=== PATIENT | female | born 1990 | race Caucasian/White ===

== ENCOUNTER 2019-06-09 23:47 | Emergency (ER) | payer SELFPAY ==
[2019-06-10] MEDS ORDERED: diphenhydrAMINE 50 MG Cap PO ONE (00:24)
--- NOTE | 2019-06-10 00:28 | EDM.PDOC ---
ED HPI GENERAL MEDICAL PROBLEM - General Chief Complaint: Skin Complaint Stated Complaint: ALLERGIC REACTION Time Seen by Provider: 06/10/19 00:20 - History of Present Illness INITIAL COMMENTS - FREE TEXT/NARRATIVE: HISTORY AND PHYSICAL: History of present illness: The patient is a 28 y/o female who is healthy and presents with complaints of a burning itchy rash that started on her back of the neck and then spread to her anterior neck and chest wall and upper extremities as well as her inner thighs but spared other parts of her body. She's not sure what triggered this but she is not having any nausea vomiting chest pain or shortness of breath and no swelling of her mouth or tongue. She says she has no allergies to medications foods or products and she is not sure what she may have contacted. She has not noticed any rash on her back or abdomen nor on the remainder of her lower extremities Review of systems: As per history of present illness and below otherwise all systems reviewed and negative. Past medical history: As per history of present illness and as reviewed below otherwise noncontributory. Surgical history: As per history of present illness and as reviewed below otherwise noncontributory. Social history: No reported history of drug or alcohol abuse. Family history: As per history of present illness and as reviewed below otherwise noncontributory. Physical exam: General: Well-developed well-nourished overweight female who is nontoxic and speaks clearly without breathlessness or hoarse voice HEENT: Atraumatic, normocephalic, pupils reactive, negative for conjunctival pallor or scleral icterus, mucous membranes moist, throat clear, neck supple, nontender, trachea midline. Lungs: Clear to auscultation, breath sounds equal bilaterally, chest nontender. No wheezing or stridor Heart: S1S2, regular, negative for clicks, rubs, or JVD. Abdomen: Soft, nondistended, nontender. Negative for masses or hepatosplenomegaly. Negative for costovertebral tenderness. Pelvis: Deferred Genitourinary: Deferred. Rectal: Deferred. Extremities: Atraumatic, negative for cords or calf pain. Neurovascular unremarkable. Neuro: Awake, alert, oriented. Cranial nerves II through XII unremarkable. Cerebellum unremarkable. Motor and sensory unremarkable throughout. Exam nonfocal. Skin: There is urticaria seen on her upper extremities bilaterally as well as her anterior upper chest and neck but there are no rashes or urticaria seen on her back her abdomen or her distant lower extremities. There is no oropharyngeal swelling or lesions and there is only some slight puffiness to her eyelids bilaterally but no urticaria on her face Diagnostics: [] Therapeutics: Benadryl Impression: Contact allergic reaction Definitive disposition and diagnosis as appropriate pending reevaluation and review of above. - Related Data Allergies Allergy/AdvReac Type Severity Reaction Status Date / Time No Known Allergies Allergy Verified 06/10/19 00:11 Home Meds: Home Meds . [No Known Home Meds] 06/10/19 [History] Past Medical History - Past Health History Medical/Surgical History: Denies Medical/Surgical History Social & Family History - Family History Family Medical History: Noncontributory - Tobacco Use Smoking Status *Q: Never Smoker - Caffeine Use Caffeine Use: Reports: None - Recreational Drug Use Recreational Drug Use: No ED ROS GENERAL - Review of Systems Review Of Systems: ROS reveals no pertinent complaints other than HPI. ED EXAM, SKIN/RASH Exam: See Below (See dictation) Course - Vital Signs Last Recorded V/S: Last Vital Signs Temp 35.9 C 06/10/19 00:08 Pulse 79 06/10/19 00:08 Resp 16 06/10/19 00:08 BP 120/79 06/10/19 00:08 Pulse Ox 98 06/10/19 00:08 - Orders/Labs/Meds Orders: Active Orders 24 hr Category Date Time Status diphenhydrAMINE [Benadryl] Med 06/10/19 00:24 Once 50 mg PO ONETIME ONE Departure - Departure Time of Disposition: 00:27 Disposition: Home, Self-Care 01 Condition: Good Clinical Impression: Contact allergic reaction - Discharge Information Referrals: PCP,None [Primary Care Provider] - Additional Instructions: The following information is given to patients seen in the emergency department who are being discharged to home. This information is to outline your options for follow-up care. We provide all patients seen in our emergency department with a follow-up referral. The need for follow-up, as well as the timing and circumstances, are variable depending upon the specifics of your emergency department visit. If you don't have a primary care physician on staff, we will provide you with a referral. We always advise you to contact your personal physician following an emergency department visit to inform them of the circumstance of the visit and for follow-up with them and/or the need for any referrals to a consulting specialist. The emergency department will also refer you to a specialist when appropriate. This referral assures that you have the opportunity for followup care with a specialist. All of these measure are taken in an effort to provide you with optimal care, which includes your followup. Under all circumstances we always encourage you to contact your private physician who remains a resource for coordinating your care. When calling for followup care, please make the office aware that this follow-up is from your recent emergency room visit. If for any reason you are refused follow-up, please contact the [facility] emergency department at and ask to speak to the emergency department charge nurse. [facility] Primary care- Internal Medicine and Family [address] [address] Please connect with your provider or one of ours to investigate the symptoms more fully and reevaluate the care plan this week. Use [id number] Benadryl 50 mg every 6 hours for the next 24-36 hours and then every 6 hours as needed keeping in mind that this may make you drowsy so do not drive a car. Air been given prednisone from [facility] and please take as directed. Return to ER as needed and as discussed. Expect the rash to improve over the next 12-24 hours annually use any [id number] topical that you choose - My Orders Last 24 Hours: My Active Orders 06/10/19 00:24 diphenhydrAMINE [Benadryl] 50 mg PO ONETIME ONE - Assessment/Plan Last 24 Hours: My Active Orders 06/10/19 00:24 diphenhydrAMINE [Benadryl] 50 mg PO ONETIME ONE
== END 2019-06-10 00:40 | disposition home or self-care (01) ==
LOC: MW.ED 23:47
DX: L50.0 Allergic urticaria (principal)
CPT/HCPCS: 99282; A9270

== ENCOUNTER 2020-06-08 05:13 | Inpatient (IN) | payer MEDICAID ==
[2020-06-08] MEDS ORDERED: Lidocaine 1% 50 ML MDV INJECT PRN (05:32)
[2020-06-08] MEDS ORDERED: Methylergonovine 0.2 MG/1 ML Amp IM PRN (05:32)
[2020-06-08] MEDS ORDERED: Sodium Chloride 0.9% 2.5 ML Syringe FLUSH PRN (05:32)
[2020-06-08] MEDS ORDERED: Sodium Chloride 0.9% 10 ML SDV IV PRN (05:32)
[2020-06-08] MEDS ORDERED: Misoprostol 200 MCG Tab PO PRN (05:32)
[2020-06-08] MEDS ORDERED: Water For Irrigation,Sterile 1,000 ML Container IRR PRN (05:32)
[2020-06-08] MEDS ORDERED: Terbutaline 1 MG/ML SDV SUBCUT PRN (05:32)
[2020-06-08] MEDS ORDERED: Carboprost Tromethamine 250 MCG/1 ML Amp IM PRN (05:32)
[2020-06-08] MEDS ORDERED: Sodium Chloride 0.9% 10 ML Syringe FLUSH PRN (05:32)
[2020-06-08] MEDS ORDERED: Nalbuphine 10 MG/1 ML Vial IVPUSH PRN (05:32)
[2020-06-08] MEDS ORDERED: Tranexamic Acid 1,000 MG in Sodium Chloride 0.9% 100 ML IV PRN (05:32)
[2020-06-08] MEDS ORDERED: Ondansetron 4 MG/2 ML SDV IVPUSH PRN (05:32)
[2020-06-08] MEDS ORDERED: Oxytocin/0.9 % Sodium Chloride 30 UNIT/500 ML BAG IV SCH ×2 (05:45)
[2020-06-08] MEDS ORDERED: Ampicillin 2 GM in Sodium Chloride 0.9% 100 ML IV ONE (06:00)
[2020-06-08] MEDS ORDERED: Misoprostol 25 MCG (1/4 of 100 MCG) Tab PO ONE (06:00)
[2020-06-08] MEDS: Lactated Ringers 1,000 ML IV SCH (06:22)
[2020-06-08] MEDS: Misoprostol 25 MCG (1/4 of 100 MCG) Tab VAG PRN ×4 (08:34→20:30)
[2020-06-08] MEDS: Ampicillin 1 GM in Sodium Chloride 0.9% 50 ML IV SCH ×4 (10:40→22:00)
--- NOTE | 2020-06-08 11:31 | PCM.CONS ---
H&P History of Present Illness - General Date of Service: 06/08/20 Admit Problem/Dx: Admission Diagnosis/Problem Admission Diagnosis/Problem Planned - History of Present Illness Initial Comments - Free Text/Narative: This 22 year old female with pmh of gestational diabetes presented to the OB unit today for planned induction. She was tested for COVID per admission policy and noted to be positive. Hospitalist team consulted for further evaluation. She reports yesterday she was feeling nauseated with some diarrhea for a few hours. Today she is feeling fine. No fevers, chills, shortness of breath, chest pain, or abdominal pain. No urinary concerns. Reports family members at home have had similar symptoms at home including headache, nausea and diarrhea. Denies known exposure to COVID positive in dividual. - Related Data Allergies/Adverse Reactions: Allergies Allergy/AdvReac Type Severity Reaction Status Date / Time No Known Allergies Allergy Verified 06/08/20 05:16 Home Medications: Home Meds Pnv No.95/Ferrous Fum/Folic AC [ Tablet] 1 tab PO DAILY 04/17/20 [History] Past Medical History - Past Health History Medical/Surgical History: Denies Medical/Surgical History HEENT History: Reports: None Cardiovascular History: Reports: Other (See Below) Other Cardiovascular History: hx of tachycardia Respiratory History: Reports: None Gastrointestinal History: Reports: None Genitourinary History: Reports: Other (See Below) Other Genitourinary History: proteinuria COURT ORDERLY History: Reports: Endometriosis, , Other (See Below) Other OB/BYN History: uterine polyps Musculoskeletal History: Reports: None Neurological History: Reports: None Psychiatric History: Reports: None Endocrine/Metabolic History: Reports: Diabetes, Gestational, Other (See Below) Other Endocrine/Metabolic History: diet controlled Hematologic History: Reports: None Immunologic History: Reports: None Oncologic (Cancer) History: Reports: None Dermatologic History: Reports: None - Infectious Disease History Infectious Disease History: Reports: Chicken Pox - Past Surgical History HEENT Surgical History: Reports: None GI Surgical History: Reports: None Female Surgical History: Reports: LEEP Social & Family History - Family History Family Medical History: Noncontributory HEENT: Reports: None Cardiac: Reports: None Respiratory: Reports: None GI: Reports: None : Reports: None OBGYN: Reports: Endometriosis, Fibroids, Musculoskeletal: Reports: Arthritis Neurological: Reports: Alzheimers Disease, Migraines Psychiatric: Reports: None Endocrine/Metabolic: Reports: Diabetes, type II Hematologic: Reports: None Immunologic: Reports: None Dermatologic: Reports: None Oncologic: Reports: Breast, Colon, Skin - Tobacco Use Smoking Status *Q: Former Smoker Used Tobacco, but Quit: Yes Month/Year Tobacco Last Used: 2017 Second Hand Smoke Exposure: No - Caffeine Use Caffeine Use: Reports: None - Recreational Drug Use Recreational Drug Use: No H&P Review of Systems - Review of Systems: Review Of Systems: See Below General: Reports: No Symptoms. Denies: Fever, Chills, Malaise, Weakness HEENT: Reports: No Symptoms. Denies: Headaches, Sore Throat, Vertigo Pulmonary: Reports: No Symptoms. Denies: Shortness of Breath Cardiovascular: Reports: No Symptoms. Denies: Chest Pain Gastrointestinal: Reports: No Symptoms. Denies: Abdominal Pain, Black Stool, Bloody Stool Genitourinary: Reports: No Symptoms. Denies: Dysuria, Frequency Musculoskeletal: Reports: No Symptoms Skin: Reports: No Symptoms Psychiatric: Reports: No Symptoms Neurological: Reports: No Symptoms Hematologic/Lymphatic: Reports: No Symptoms Immunologic: Reports: No Symptoms Exam - Exam Exam: See Below - Vital Signs Weight: 115.212 kg - Exam General: Alert, Oriented Neck: Supple, Trachea Midline Lungs: Clear to Auscultation, Normal Respiratory Effort Cardiovascular: Regular Rate, Regular Rhythm, Normal S1, Normal S2 Extremities: Normal Inspection, Normal Range of Motion, Non-Tender, No Pedal Edema Neuro Extensive - Mental Status: Alert, Oriented x3 Neuro Extensive - Motor, Sensory, Reflexes: CN II-XII Intact Psychiatric: Alert, Normal Affect, Normal Mood - Patient Data Lab Results Last 24 hrs: Laboratory Results - last 24 hr 06/08/20 06/08/20 06/08/20 Range/Units 05:43 05:43 05:50 WBC 6.68 (4.0-11.0) K/uL RBC 4.10 L (4.30-5.90) M/uL Hgb 12.0 (12.0-16.0) g/dL Hct 37.4 (36.0-46.0) % MCV 91.2 (80.0-98.0) fL MCH 29.3 (27.0-32.0) pg MCHC 32.1 (31.0-37.0) g/dL RDW Std Deviation 48.7 (28.0-62.0) fl RDW Coeff of Mary 15 (11.0-15.0) % Plt Count 197 (150-400) K/uL MPV 11.20 (7.40-12.00) fL Nucleated RBC % 0.0 /100WBC Nucleated RBCs # 0 K/uL COVID-19 (OLIVIA) POSITIVE H (NEGATIVE) Blood Type A POSITIVE Antibody Screen NEGATIVE Result Diagrams: 06/08/20 05:43 Sepsis Event Note - Evaluation Sepsis Screening Result: No Definite Risk Consult PN Assessment/Plan Procedures: Procedures ASSAY OF BLOOD/URIC ACID (04/16/20) ASSAY OF FREE THYROXINE (03/29/20) ASSAY OF MAGNESIUM (04/17/20) ASSAY OF PROTEIN URINE (05/11/20) ASSAY OF URINE CREATININE (05/11/20) ASSAY THYROID STIM HORMONE (03/29/20) BLOOD TYPING SEROLOGIC ABO (12/26/19) BLOOD TYPING SEROLOGIC RH(D) (12/26/19) CHORIONIC GONADOTROPIN TEST (11/26/19) CHYLMD TRACH DNA AMP PROBE (12/26/19) COMPLETE CBC AUTOMATED (04/17/20) COMPLETE CBC W/AUTO DIFF WBC (04/01/20) COMPREHEN METABOLIC PANEL (04/17/20) CULTURE SCREEN ONLY (05/18/20) DRUG TEST PRSMV DIR OPT OBS (11/28/19) EMERGENCY DEPT VISIT (06/09/19) EXTREMITY STUDY (04/22/20) NON-STRESS TEST (06/01/20) GLUCOSE BLOOD TEST (04/17/20) GLUCOSE TEST (12/26/19) GLUCOSE TOLERANCE TEST (GTT) (02/25/20) HEPATITIS B SURFACE AG IA (12/26/19) HEPATITIS C AB TEST (12/26/19) HIV-1 AG W/HIV-1 & HIV-2 AB (12/26/19) INFLUENZA ASSAY W/OPTIC (09/11/19) MEDICAL NUTRITION INDIV IN (03/10/20) N.GONORRHOEAE DNA AMP PROB (12/26/19) OB US >/= 14 WKS SNGL FETUS (02/10/20) OB US FOLLOW-UP PER FETUS (05/18/20) RBC ANTIBODY SCREEN (02/25/20) ROUTINE VENIPUNCTURE (04/17/20) RUBELLA ANTIBODY (12/26/19) SYPHILIS TEST NON-TREP QUAL (12/26/19) SYPHILIS TEST NON-TREP QUANT (12/26/19) TRANSVAGINAL US OBSTETRIC (02/10/20) TTE W/DOPPLER COMPLETE (04/29/20) URINALYSIS AUTO W/O SCOPE (04/17/20) URINE CULTURE/COLONY COUNT (11/28/19) X-RAY EXAM CHEST 2 VIEWS (09/11/19) (1) COVID-19 affecting in third trimester SNOMED Code(s): 560557200, 863631104 Code(s): O98.513 - OTHER VIRAL DISEASES COMPLICATING , THIRD TRIMESTER; U07.1 - COVID-19 Current Visit: Yes Problem List Initiated/Reviewed/Updated: Yes Plan: This 29 year old female admitted with COVID 19 infection, currentlye asymptomatic. Hospitalist team consulted for medical management of COVID 19 infection 1. COVID 19 infection - Supportive care currently - No symptoms today, diarrhea and nausea yesterday - Notified nursing team to contact Hospitalist if patient becomes hypoxic, sats <90% on RA. - Remdesivir and Dexamethasone treatment excluded currently as she is asymptomatic, as well as . We did discuss the need for it should she become hypoxic in the post period but she would then not be able to breastfeed. She reports she was going to pump and dump if that was needed and supplement with formula. - All questions answered - She has been in contact with the state already regarding quarantining for herself and family members
[2020-06-08] MEDS: Acetaminophen 325 MG Tab PO PRN (11:40)
[2020-06-08] MEDS: Misoprostol 25 MCG (1/4 of 100 MCG) Tab PO PRN ×3 (12:21→20:31)
[2020-06-08] MEDS ORDERED: Oxytocin/0.9 % Sodium Chloride 30 UNIT/500 ML BAG ONE (19:52)
[2020-06-09] MEDS: Misoprostol 25 MCG (1/4 of 100 MCG) Tab VAG PRN (00:24)
[2020-06-09] MEDS: Misoprostol 25 MCG (1/4 of 100 MCG) Tab PO PRN (00:25)
[2020-06-09] MEDS: Acetaminophen 325 MG Tab PO PRN ×2 (00:58→07:01)
[2020-06-09] MEDS: Ampicillin 1 GM in Sodium Chloride 0.9% 50 ML IV SCH ×3 (01:48→10:30)
[2020-06-09] MEDS: Lactated Ringers 1,000 ML IV SCH ×3 (04:45→20:00)
[2020-06-09] MEDS ORDERED: Bupivicaine/fentaNYL/NS 250 ML ONE (05:10)
--- NOTE | 2020-06-09 05:59 | PCM.SN.2 ---
- Free Text/Narrative Note: Total anesthesia time spent 06/09/20 from [id number] 0515- to PP3, discussed epidural risks, benefits, procedure, maintenance, and anesthesia coverage with patient. All questions answered and concerns addressed. Consent signed. 0520- sitting position, monitors on, VSS, time-out/ patient verified. Sterile prep with chlorhexidine. Attempt #1 at L3-4 with no FABI. 0731 Attempt #2 at L3-4 with 17g tuohy. FABI at 5.5 cm with saline. Catheter threaded without resistance to 10cm. No paresthesias. 0732- Negative to aspiration of both blood and CSF. Negative test dose. Sterile tegaderm dressing applied, tape to secure. 0740- 6ml clinician bolus and gtt started (10ml/hr of 0.125% bupivicaine with 2 mcg/ml of fentanyl. 5ml TIRE GROOVER option Q15 min, lockout 34ml/hr. Pt educated regarding TIRE GROOVER usage. 0556- T10 level achieved, pt reports adequate pain control.
--- NOTE | 2020-06-09 06:04 | PCM.PREANE ---
Preanesthetic Assessment - Procedure Proposed Procedure: PATTI for active labor. Pt assessed 06/09/20 at 0515 prior to epidural placement. - Anesthesia/Transfusion/Family Hx Anesthesia History: Prior Anesthesia Without Reaction (Previous epidurals without complications. No previous surgeries per patient.) Family History of Anesthesia Reaction: No Transfusion History: No Prior Transfusion(s) Additional History: Pt is COVID-19 positive, but asymptomatic at this point. PAPR, N95 mask, and all appropriate PPE worn while in room, with proper donning/doffing procedure followed. Gestational diabetes, well-controlled. - Review of Systems General: No Symptoms Pulmonary: No Symptoms Cardiovascular: No Symptoms Gastrointestinal: No Symptoms Neurological: No Symptoms Other: Reports: None - Physical Assessment NPO Status Date: 06/09/20 NPO Status Time: 02:30 (NPO for food. Clear liquids okay.) Vital Signs: Last Vital Signs Temp 37.4 C 06/09/20 00:58 Pulse Resp BP Pulse Ox Height: 1.73 m Weight: 115.212 kg ASA Class: 2 Mental Status: Alert & Oriented x3 Dentition: Reports: Normal Dentition Thyro-Mental Finger Breadths: 3 Mouth Opening Finger Breadths: 3 ROM/Head Extension: Full Lungs: Normal Respiratory Effort Cardiovascular: Regular Rate, Regular Rhythm - Lab Values: Laboratory Last Values WBC 6.68 K/uL (4.0-11.0) 06/08/20 05:43 RBC 4.10 M/uL (4.30-5.90) L 06/08/20 05:43 Hgb 12.0 g/dL (12.0-16.0) 06/08/20 05:43 Hct 37.4 % (36.0-46.0) 06/08/20 05:43 MCV 91.2 fL (80.0-98.0) 06/08/20 05:43 MCH 29.3 pg (27.0-32.0) 06/08/20 05:43 MCHC 32.1 g/dL (31.0-37.0) 06/08/20 05:43 RDW Std Deviation 48.7 fl (28.0-62.0) 06/08/20 05:43 RDW Coeff of Mary 15 % (11.0-15.0) 06/08/20 05:43 Plt Count 197 K/uL (150-400) 06/08/20 05:43 MPV 11.20 fL (7.40-12.00) 06/08/20 05:43 Nucleated RBC % 0.0 /100WBC 06/08/20 05:43 Nucleated RBCs # 0 K/uL 06/08/20 05:43 COVID-19 (OLIVIA) POSITIVE (NEGATIVE) H 06/08/20 05:50 Blood Type A POSITIVE 06/08/20 05:43 Antibody Screen NEGATIVE 06/08/20 05:43 - Allergies Allergies/Adverse Reactions: Allergies Allergy/AdvReac Type Severity Reaction Status Date / Time No Known Allergies Allergy Verified 06/08/20 05:16 - Anesthesia Plan Pre-Op Medication Ordered: None - Acknowledgements Anesthesia Type Planned: Epidural Pt an Appropriate Candidate for the Planned Anesthesia: Yes Alternatives and Risks of Anesthesia Discussed w Pt/Guardian: Yes Pt/Guardian Understands and Agrees with Anesthesia Plan: Yes Additional Comments: See provider simple note for procedure. PreAnesthesia Questionnaire - Past Health History Medical/Surgical History: Denies Medical/Surgical History HEENT History: Reports: None Cardiovascular History: Reports: Other (See Below) Other Cardiovascular History: hx of tachycardia Respiratory History: Reports: None Gastrointestinal History: Reports: None Genitourinary History: Reports: Other (See Below) Other Genitourinary History: proteinuria INJECTION MOLDING TECHNICIAN History: Reports: Endometriosis, , Other (See Below) Other OB/BYN History: uterine polyps Musculoskeletal History: Reports: None Neurological History: Reports: None Psychiatric History: Reports: None Endocrine/Metabolic History: Reports: Diabetes, Gestational, Other (See Below) Other Endocrine/Metabolic History: diet controlled Hematologic History: Reports: None Immunologic History: Reports: None Oncologic (Cancer) History: Reports: None Dermatologic History: Reports: None - Infectious Disease History Infectious Disease History: Reports: Chicken Pox - Past Surgical History HEENT Surgical History: Reports: None GI Surgical History: Reports: None Female Surgical History: Reports: LEEP - SUBSTANCE USE Smoking Status *Q: Former Smoker Second Hand Smoke Exposure: No Recreational Drug Use History: No - HOME MEDS Home Medications: Home Meds Pnv No.95/Ferrous Fum/Folic AC [ Tablet] 1 tab PO DAILY 04/17/20 [History] - CURRENT (IN HOUSE) MEDS Current Meds: Current Medications Acetaminophen (Tylenol) 1,000 mg PO Q6H PRN PRN Reason: mild pain and fever Last Admin: 06/09/20 00:58 Dose: 975 mg Documented by: Carboprost Tromethamine (Hemabate Ds) 250 mcg IM ASDIRECTED PRN PRN Reason: Post Hemorrhage Oxytocin/Sodium Chloride (Oxytocin 30 Unit/500 Ml-Ns) 30 unit in 500 mls @ 500 mls/hr IV TITRATE NEAL Tranexamic Acid 1,000 mg/ (Sodium Chloride) 110 mls @ 660 mls/hr IV ONETIME PRN PRN Reason: Bleeding Oxytocin/Sodium Chloride (Oxytocin 30 Unit/500 Ml-Ns) 30 unit in 500 mls @ 2 mls/hr IV TITRATE NEAL; Protocol Lactated Ringer's (Ringers, Lactated) 1,000 mls @ 150 mls/hr IV ASDIRECTED NEAL Last Admin: 06/09/20 04:45 Dose: 999 mls/hr Documented by: Ampicillin Sodium 1 gm/ Sodium (Chloride) 50 mls @ 100 mls/hr IV Q4H COUNT INCLUDES THE [facility] Last Admin: 06/09/20 05:52 Dose: 100 mls/hr Documented by: Lidocaine HCl (Xylocaine 1%) 50 ml INJECT ONETIME PRN PRN Reason: Laceration repair Methylergonovine Maleate (Methergine) 0.2 mg IM ASDIRECTED PRN PRN Reason: Post Hemorrhage Misoprostol (Cytotec) 200 mcg PO ONETIME PRN PRN Reason: Post Hemorrhage Misoprostol (Cytotec) 25 mcg VAG ONETIME PRN PRN Reason: Cervical Ripening Last Admin: 06/08/20 12:21 Dose: 25 mcg Documented by: Misoprostol (Cytotec) 25 mcg VAG Q4H PRN PRN Reason: Cervical Ripening Last Admin: 06/09/20 00:24 Dose: 25 mcg Documented by: Misoprostol (Cytotec) 25 mcg PO Q4H PRN PRN Reason: Other Last Admin: 06/09/20 00:25 Dose: 25 mcg Documented by: Nalbuphine HCl (Nubain) 10 mg IVPUSH Q1H PRN PRN Reason: Pain (severe 7-10) Ondansetron HCl (Zofran) 4 mg IVPUSH Q6H PRN PRN Reason: Nausea/Vomiting Sodium Chloride (Saline Flush) 10 ml FLUSH ASDIRECTED PRN PRN Reason: Keep Vein Open Sodium Chloride (Saline Flush) 2.5 ml FLUSH ASDIRECTED PRN PRN Reason: Keep Vein Open Sodium Chloride (Normal Saline) 10 ml IV ASDIRECTED PRN PRN Reason: IV Use Sterile Water (Sterile Water For Irrigation) 1,000 ml IRR ASDIRECTED PRN PRN Reason: delivery Terbutaline Sulfate (Brethine) 0.25 mg SUBCUT ASDIRECTED PRN PRN Reason: Tacysystole Discontinued Medications Ampicillin Sodium 2 gm/ Sodium (Chloride) 100 mls @ 200 mls/hr IV ONETIME ONE Stop: 06/08/20 06:29 Last Admin: 06/08/20 06:24 Dose: 200 mls/hr Documented by: Oxytocin/Sodium Chloride (Oxytocin 30 Unit/500 Ml-Ns) Confirm Administered Dose 30 unit in 500 mls @ as directed .ROUTE .STK-MED ONE Stop: 06/08/20 19:53 Fentanyl/Bupivacaine HCl (Fentanyl/Bupivacaine/Ns 2 Mcg-0.125% 250 Ml) Confirm Administered Dose 250 mls @ as directed .ROUTE .STK-MED ONE Stop: 06/09/20 05:11 Misoprostol (Cytotec) 25 mcg PO ONETIME ONE Stop: 06/08/20 06:01 Last Admin: 06/08/20 08:33 Dose: 25 mcg Documented by:
--- NOTE | 2020-06-09 09:43 | PCM.LDHP ---
L&D History of Present Illness - General Date of Service: 06/08/20 Admit Problem/Dx: Admission Diagnosis/Problem Admission Diagnosis/Problem Planned Source of Information: Patient History Limitations: Reports: No Limitations - History of Present Illness Pain Score: 0 Improves with: Reports: None Worsens with: Reports: None Associated Symptoms: Reports: N - Related Data Allergies/Adverse Reactions: Allergies Allergy/AdvReac Type Severity Reaction Status Date / Time No Known Allergies Allergy Verified 06/08/20 05:16 Home Medications: Home Meds Pnv No.95/Ferrous Fum/Folic AC [ Tablet] 1 tab PO DAILY 04/17/20 [History] Past Medical History - Past Health History Medical/Surgical History: Denies Medical/Surgical History HEENT History: Reports: None Cardiovascular History: Reports: Other (See Below) Other Cardiovascular History: hx of tachycardia Respiratory History: Reports: None Gastrointestinal History: Reports: None Genitourinary History: Reports: Other (See Below) Other Genitourinary History: proteinuria NAIL CUTTER History: Reports: Endometriosis, , Other (See Below) Other OB/BYN History: uterine polyps Musculoskeletal History: Reports: None Neurological History: Reports: None Psychiatric History: Reports: None Endocrine/Metabolic History: Reports: Diabetes, Gestational, Other (See Below) Other Endocrine/Metabolic History: diet controlled Hematologic History: Reports: None Immunologic History: Reports: None Oncologic (Cancer) History: Reports: None Dermatologic History: Reports: None - Infectious Disease History Infectious Disease History: Reports: Chicken Pox - Past Surgical History HEENT Surgical History: Reports: None GI Surgical History: Reports: None Female Surgical History: Reports: LEEP Social & Family History - Family History Family Medical History: Noncontributory HEENT: Reports: None Cardiac: Reports: None Respiratory: Reports: None GI: Reports: None : Reports: None OBGYN: Reports: Endometriosis, Fibroids, Musculoskeletal: Reports: Arthritis Neurological: Reports: Alzheimers Disease, Migraines Psychiatric: Reports: None Endocrine/Metabolic: Reports: Diabetes, type II Hematologic: Reports: None Immunologic: Reports: None Dermatologic: Reports: None Oncologic: Reports: Breast, Colon, Skin - Tobacco Use Smoking Status *Q: Former Smoker Used Tobacco, but Quit: Yes Month/Year Tobacco Last Used: 2017 Second Hand Smoke Exposure: No - Caffeine Use Caffeine Use: Reports: None - Recreational Drug Use Recreational Drug Use: No H&P Review of Systems - Review of Systems: Review Of Systems: See Below General: Reports: No Symptoms HEENT: Reports: No Symptoms Pulmonary: Reports: No Symptoms Cardiovascular: Reports: No Symptoms Gastrointestinal: Reports: No Symptoms Genitourinary: Reports: No Symptoms Musculoskeletal: Reports: No Symptoms Skin: Reports: No Symptoms Psychiatric: Reports: No Symptoms Neurological: Reports: No Symptoms Hematologic/Lymphatic: Reports: No Symptoms Immunologic: Reports: No Symptoms L&D Exam - Exam Exam: See Below - Vital Signs Vital Signs: Last Vital Signs Temp 37.4 C 06/09/20 00:58 Pulse Resp BP Pulse Ox Weight: 115.212 kg - OB Specific Contraction Intensity: Mild to Moderate - Knapp Score Knapp Score Cervix Position: Midposition Knapp Score Consistency: Medium Knapp Score Effacement: 51-70% Knapp Score Dilation: 1-2 cm Knpap Score Infant's Station: -3 Knapp Score Total: 5 - Exam General: Alert, Oriented HEENT: PERRLA, Conjunctiva Clear, EACs Clear, EOMI, Hearing Intact, Mucosa Moist & Sesser, Nares Patent, Normal Nasal Septum, Posterior Pharynx Clear, TMs Clear Neck: Supple, Trachea Midline Lungs: Clear to Auscultation, Normal Respiratory Effort Cardiovascular: Regular Rate, Regular Rhythm GI/Abdominal Exam: Normal Bowel Sounds, Soft, Non-Tender, No Organomegaly, No Distention, No Abnormal Bruit, No Mass, Pelvis Stable Rectal Exam: Normal Exam, Normal Rectal Tone Genitourinary: Normal external exam, Normal bimanual exam, Normal speculum exam Back Exam: Normal Inspection, Full Range of Motion Extremities: Normal Inspection, Normal Range of Motion, Non-Tender, No Pedal Edema, Normal Capillary Refill Skin: Warm, Dry, Intact Neurological: Cranial Nerves Intact, Reflexes Equal Bilateral Psychiatric: Alert, Normal Affect, Normal Mood - Patient Data Result Diagrams: 06/08/20 05:43 Problem List Initiated/Reviewed/Updated: Yes Orders Last 24hrs: Active Orders 24 hr Category Date Time Status Communication Order [RC] ROUTINE Care 06/08/20 11:31 Active Notify Provider Consults [RC] ASDIRECTED Care 06/08/20 10:27 Active Consult to Physician [CONS] Routine Cons 06/08/20 10:15 Active Ampicillin 1 gm Med 06/08/20 10:00 Active Sodium Chloride 0.9% [Normal Saline] 50 ml IV Q4H miSOPROStoL [Cytotec] Med 06/08/20 12:00 Active 25 mcg PO Q4H PRN miSOPROStoL [Cytotec] Med 06/08/20 10:00 Active 25 mcg VAG Q4H PRN Medication Orders Acetaminophen (Tylenol) 1,000 mg PO Q6H PRN PRN Reason: mild pain and fever Last Admin: 06/09/20 07:01 Dose: 975 mg Documented by: Admin: 06/09/20 00:58 Dose: 975 mg Documented by: Admin: 06/08/20 11:40 Dose: 950 mg Documented by: LIZETTE Carboprost Tromethamine (Hemabate Ds) 250 mcg IM ASDIRECTED PRN PRN Reason: Post Hemorrhage Oxytocin/Sodium Chloride (Oxytocin 30 Unit/500 Ml-Ns) 30 unit in 500 mls @ 500 mls/hr IV TITRATE NEAL Tranexamic Acid 1,000 mg/ (Sodium Chloride) 110 mls @ 660 mls/hr IV ONETIME PRN PRN Reason: Bleeding Oxytocin/Sodium Chloride (Oxytocin 30 Unit/500 Ml-Ns) 30 unit in 500 mls @ 2 mls/hr IV TITRATE NEAL; Protocol Last Titration: 06/09/20 07:05 Dose: 6 munits/min, 6 mls/hr Documented by: Titration: 06/09/20 06:40 Dose: 4 munits/min, 4 mls/hr Documented by: Admin: 06/09/20 06:04 Dose: 2 munits/min, 2 mls/hr Documented by: BALDO Lactated Ringer's (Ringers, Lactated) 1,000 mls @ 150 mls/hr IV ASDIRECTED NEAL Last Infusion: 06/09/20 06:30 Dose: 150 mls/hr Documented by: Admin: 06/09/20 04:45 Dose: 999 mls/hr Documented by: Infusion: 06/08/20 22:10 Dose: 500 mls/hr Documented by: Infusion: 06/08/20 20:30 Dose: 500 mls/hr Documented by: Infusion: 06/08/20 07:30 Dose: 0 mls/hr Documented by: Admin: 06/08/20 06:22 Dose: 150 mls/hr Documented by: VITALY Ampicillin Sodium 1 gm/ Sodium (Chloride) 50 mls @ 100 mls/hr IV Q4H NEAL Last Admin: 06/09/20 05:52 Dose: 100 mls/hr Documented by: Infusion: 06/09/20 02:18 Dose: 100 mls/hr Documented by: Admin: 06/09/20 01:48 Dose: 100 mls/hr Documented by: Infusion: 06/08/20 22:30 Dose: 100 mls/hr Documented by: Admin: 06/08/20 22:00 Dose: 100 mls/hr Documented by: Infusion: 06/08/20 18:34 Dose: 100 mls/hr Documented by: Admin: 06/08/20 18:04 Dose: 100 mls/hr Documented by: Infusion: 06/08/20 14:52 Dose: 100 mls/hr Documented by: Admin: 06/08/20 14:22 Dose: 100 mls/hr Documented by: Infusion: 06/08/20 11:10 Dose: 100 mls/hr Documented by: Admin: 06/08/20 10:40 Dose: 100 mls/hr Documented by: LIZETTE Lidocaine HCl (Xylocaine 1%) 50 ml INJECT ONETIME PRN PRN Reason: Laceration repair Methylergonovine Maleate (Methergine) 0.2 mg IM ASDIRECTED PRN PRN Reason: Post Hemorrhage Misoprostol (Cytotec) 200 mcg PO ONETIME PRN PRN Reason: Post Hemorrhage Misoprostol (Cytotec) 25 mcg VAG ONETIME PRN PRN Reason: Cervical Ripening Last Admin: 06/08/20 12:21 Dose: 25 mcg Documented by: Admin: 06/08/20 08:34 Dose: 25 mcg Documented by: LIZETTE Misoprostol (Cytotec) 25 mcg VAG Q4H PRN PRN Reason: Cervical Ripening Last Admin: 06/09/20 00:24 Dose: 25 mcg Documented by: Admin: 06/08/20 20:30 Dose: 25 mcg Documented by: Admin: 06/08/20 16:22 Dose: 25 mcg Documented by: LIZETTE Misoprostol (Cytotec) 25 mcg PO Q4H PRN PRN Reason: Other Last Admin: 06/09/20 00:25 Dose: 25 mcg Documented by: Admin: 06/08/20 20:31 Dose: 25 mcg Documented by: Admin: 06/08/20 16:22 Dose: 25 mcg Documented by: Admin: 06/08/20 12:21 Dose: 25 mcg Documented by: LIZETTE Nalbuphine HCl (Nubain) 10 mg IVPUSH Q1H PRN PRN Reason: Pain (severe 7-10) Ondansetron HCl (Zofran) 4 mg IVPUSH Q6H PRN PRN Reason: Nausea/Vomiting Sodium Chloride (Saline Flush) 10 ml FLUSH ASDIRECTED PRN PRN Reason: Keep Vein Open Sodium Chloride (Saline Flush) 2.5 ml FLUSH ASDIRECTED PRN PRN Reason: Keep Vein Open Sodium Chloride (Normal Saline) 10 ml IV ASDIRECTED PRN PRN Reason: IV Use Sterile Water (Sterile Water For Irrigation) 1,000 ml IRR ASDIRECTED PRN PRN Reason: delivery Terbutaline Sulfate (Brethine) 0.25 mg SUBCUT ASDIRECTED PRN PRN Reason: Tacysystole Assessment/Plan Comment:: Patient is multiparous she is admitted for elective induction because of gest ational diabetes the time of admission she was 2-3 cm 50 vertex and out of the pelvis her presentation is confirmed by ultrasound. She tested positive for covid 19 she is asymptomatic chest clear to auscultation the patient have no respiratory distress. Initiated and force Covid 19 precaution. I am planning to induce her with Cytotec and Pitocin as per established protocol.
--- NOTE | 2020-06-09 12:31 | PCM.CONSN ---
- General Info Date of Service: 06/09/20 Admission Dx/Problem (Free Text): Admission Diagnosis/Problem Admission Diagnosis/Problem Planned Subjective Update: Doing well this morning, have some mild chills and feverish feelings overnight after epidural was placed. Tylenol helped with this. No complaints of SOB. Sats 99% on RA. Functional Status: Reports: Pain Controlled, Tolerating Diet - Review of Systems HEENT: Reports: No Symptoms. Denies: Headaches, Sore Throat, Visual Changes Pulmonary: Reports: No Symptoms. Denies: Shortness of Breath Cardiovascular: Reports: No Symptoms. Denies: Chest Pain Gastrointestinal: Reports: No Symptoms. Denies: Abdominal Pain, Nausea, Vomiting Genitourinary: Reports: No Symptoms. Denies: Dysuria, Frequency, Burning Musculoskeletal: Reports: No Symptoms Skin: Reports: No Symptoms Neurological: Reports: No Symptoms Psychiatric: Reports: No Symptoms - Patient Data Vitals - Most Recent: Last Vital Signs Temp 99.4 F 06/09/20 00:58 Pulse Resp BP Pulse Ox Weight - Most Recent: 115.212 kg I&O - Last 24 Hours: Intake & Output 06/08/20 06/09/20 06/09/20 22:59 06:59 14:59 Intake Total 50 Output Total 650 Balance -600 Lab Results Last 24 Hours: Laboratory Results - last 24 hr 06/08/20 Range/Units 05:43 RPR Non-Reac (Non-Reac) Med Orders - Current: Current Medications Acetaminophen (Tylenol) 1,000 mg PO Q6H PRN PRN Reason: mild pain and fever Last Admin: 06/09/20 07:01 Dose: 975 mg Documented by: Carboprost Tromethamine (Hemabate Ds) 250 mcg IM ASDIRECTED PRN PRN Reason: Post Hemorrhage Oxytocin/Sodium Chloride (Oxytocin 30 Unit/500 Ml-Ns) 30 unit in 500 mls @ 500 mls/hr IV TITRATE NEAL Tranexamic Acid 1,000 mg/ (Sodium Chloride) 110 mls @ 660 mls/hr IV ONETIME PRN PRN Reason: Bleeding Oxytocin/Sodium Chloride (Oxytocin 30 Unit/500 Ml-Ns) 30 unit in 500 mls @ 2 mls/hr IV TITRATE NEAL; Protocol Last Titration: 06/09/20 08:30 Dose: 10 munits/min, 10 mls/hr Documented by: Lactated Ringer's (Ringers, Lactated) 1,000 mls @ 150 mls/hr IV ASDIRECTED [facility] Last Admin: 06/09/20 08:30 Dose: 150 mls/hr Documented by: Ampicillin Sodium 1 gm/ Sodium (Chloride) 50 mls @ 100 mls/hr IV Q4H [facility] Last Admin: 06/09/20 10:30 Dose: 100 mls/hr Documented by: Lidocaine HCl (Xylocaine 1%) 50 ml INJECT ONETIME PRN PRN Reason: Laceration repair Methylergonovine Maleate (Methergine) 0.2 mg IM ASDIRECTED PRN PRN Reason: Post Hemorrhage Misoprostol (Cytotec) 200 mcg PO ONETIME PRN PRN Reason: Post Hemorrhage Misoprostol (Cytotec) 25 mcg VAG ONETIME PRN PRN Reason: Cervical Ripening Last Admin: 06/08/20 12:21 Dose: 25 mcg Documented by: Misoprostol (Cytotec) 25 mcg VAG Q4H PRN PRN Reason: Cervical Ripening Last Admin: 06/09/20 00:24 Dose: 25 mcg Documented by: Misoprostol (Cytotec) 25 mcg PO Q4H PRN PRN Reason: Other Last Admin: 06/09/20 00:25 Dose: 25 mcg Documented by: Nalbuphine HCl (Nubain) 10 mg IVPUSH Q1H PRN PRN Reason: Pain (severe 7-10) Ondansetron HCl (Zofran) 4 mg IVPUSH Q6H PRN PRN Reason: Nausea/Vomiting Sodium Chloride (Saline Flush) 10 ml FLUSH ASDIRECTED PRN PRN Reason: Keep Vein Open Sodium Chloride (Saline Flush) 2.5 ml FLUSH ASDIRECTED PRN PRN Reason: Keep Vein Open Sodium Chloride (Normal Saline) 10 ml IV ASDIRECTED PRN PRN Reason: IV Use Sterile Water (Sterile Water For Irrigation) 1,000 ml IRR ASDIRECTED PRN PRN Reason: delivery Terbutaline Sulfate (Brethine) 0.25 mg SUBCUT ASDIRECTED PRN PRN Reason: Tacysystole Discontinued Medications Ampicillin Sodium 2 gm/ Sodium (Chloride) 100 mls @ 200 mls/hr IV ONETIME ONE Stop: 06/08/20 06:29 Last Admin: 06/08/20 06:24 Dose: 200 mls/hr Documented by: Oxytocin/Sodium Chloride (Oxytocin 30 Unit/500 Ml-Ns) Confirm Administered Dose 30 unit in 500 mls @ as directed .ROUTE .STK-MED ONE Stop: 06/08/20 19:53 Fentanyl/Bupivacaine HCl (Fentanyl/Bupivacaine/Ns 2 Mcg-0.125% 250 Ml) Confirm Administered Dose 250 mls @ as directed .ROUTE .STK-MED ONE Stop: 06/09/20 05:11 Misoprostol (Cytotec) 25 mcg PO ONETIME ONE Stop: 06/08/20 06:01 Last Admin: 06/08/20 08:33 Dose: 25 mcg Documented by: - Exam General: Alert, Oriented, Cooperative, No Acute Distress Lungs: Clear to Auscultation, Normal Respiratory Effort Cardiovascular: Regular Rate, Regular Rhythm Extremities: Normal Inspection, Normal Range of Motion, Non-Tender, No Pedal Edema Psy/Mental Status: Alert, Normal Affect, Normal Mood Sepsis Event Note - Evaluation Sepsis Screening Result: No Definite Risk - Focused Exam Vital Signs: Vital Signs Temp 06/09/20 00:58 99.4 F Consult PN Assessment/Plan Procedures: Procedures ASSAY OF BLOOD/URIC ACID (04/16/20) ASSAY OF FREE THYROXINE (03/29/20) ASSAY OF MAGNESIUM (04/17/20) ASSAY OF PROTEIN URINE (05/11/20) ASSAY OF URINE CREATININE (05/11/20) ASSAY THYROID STIM HORMONE (03/29/20) BLOOD TYPING SEROLOGIC ABO (12/26/19) BLOOD TYPING SEROLOGIC RH(D) (12/26/19) CHORIONIC GONADOTROPIN TEST (11/26/19) CHYLMD TRACH DNA AMP PROBE (12/26/19) COMPLETE CBC AUTOMATED (04/17/20) COMPLETE CBC W/AUTO DIFF WBC (04/01/20) COMPREHEN METABOLIC PANEL (04/17/20) CULTURE SCREEN ONLY (05/18/20) DRUG TEST PRSMV DIR OPT OBS (11/28/19) EMERGENCY DEPT VISIT (06/09/19) EXTREMITY STUDY (04/22/20) NON-STRESS TEST (06/01/20) GLUCOSE BLOOD TEST (04/17/20) GLUCOSE TEST (12/26/19) GLUCOSE TOLERANCE TEST (GTT) (02/25/20) HEPATITIS B SURFACE AG IA (12/26/19) HEPATITIS C AB TEST (12/26/19) HIV-1 AG W/HIV-1 & HIV-2 AB (12/26/19) INFLUENZA ASSAY W/OPTIC (09/11/19) MEDICAL NUTRITION INDIV IN (03/10/20) N.GONORRHOEAE DNA AMP PROB (12/26/19) OB US >/= 14 WKS SNGL FETUS (02/10/20) OB US FOLLOW-UP PER FETUS (05/18/20) RBC ANTIBODY SCREEN (02/25/20) ROUTINE VENIPUNCTURE (04/17/20) RUBELLA ANTIBODY (12/26/19) SYPHILIS TEST NON-TREP QUAL (12/26/19) SYPHILIS TEST NON-TREP QUANT (12/26/19) TRANSVAGINAL US OBSTETRIC (02/10/20) TTE W/DOPPLER COMPLETE (04/29/20) URINALYSIS AUTO W/O SCOPE (04/17/20) URINE CULTURE/COLONY COUNT (11/28/19) X-RAY EXAM CHEST 2 VIEWS (09/11/19) (1) COVID-19 affecting in third trimester SNOMED Code(s): 260809129, 194661939 Code(s): O98.513 - OTHER VIRAL DISEASES COMPLICATING , THIRD TRIMESTER; U07.1 - COVID-19 Current Visit: Yes Problem List Initiated/Reviewed/Updated: Yes Plan: This 29 year old female admitted with COVID 19 infection, currentlye a symptomatic. Hospitalist team consulted for medical management of COVID 19 infection 1. COVID 19 infection - Supportive care currently - Fever and chills overnight and achey feelings, No dyspnea. VS stable and sats 99% on RA. - Notified nursing team to contact Hospitalist if patient becomes hypoxic, sats <90% on RA. - Remdesivir and Dexamethasone treatment excluded currently as she is asymptomatic, as well as . We did discuss the need for it should she become hypoxic in the post period but she would then not be able to breastfeed. She reports she was going to pump and dump if that was needed and supplement with formula. - All questions answered - Discussed quarantining at home and wearing a mask when caring for her children and new baby along with good hand hygiene and avoiding kissing. She verbalized understanding/ She had concerns about her feeling pretty ill at home. I advised her if he was concerned to be evaluated in the ED or respiratory clinic.
[2020-06-09] MEDS ORDERED: oxyCODONE 5 MG Tab PO PRN (12:39)
[2020-06-09] MEDS ORDERED: Lanolin 100% Cream 7 GM Tube TOP PRN (12:39)
[2020-06-09] MEDS ORDERED: Docusate Sodium 100 MG Cap PO PRN (12:39)
[2020-06-09] MEDS ORDERED: Witch Hazel Medicated Pads 40/Jar TOP PRN (12:39)
[2020-06-09] MEDS ORDERED: Acetaminophen 500 MG Tab PO PRN (12:39)
[2020-06-09] MEDS ORDERED: Bisacodyl 10 MG Supp RECTAL PRN (12:39)
[2020-06-09] MEDS ORDERED: Ibuprofen 400 MG Tab PO PRN (12:39)
[2020-06-09] MEDS ORDERED: Benzocaine/Menthol 20%-0.5% Spray 78 GM Cannister TOP PRN (12:39)
--- NOTE | 2020-06-09 12:53 | PCM.DEL ---
L & D Note - General Info Date of Service: 06/09/20 Mother's Due Date: 06/15/20 - Delivery Note Labor: Spontaneous Cervical Ripening Method: Misoprostil, Oxytocin Delivery Outcome: Livebirth Delivery Method: Spontaneous Vaginal Delivery-Single Infant Delivery Mode: Spontaneous Presentation: Vertex Nuchal Cord: Present (Body nuchal x 2) Anesthesia Type: Epidural Amniotic Fluid Description: Clear Episiotomy Type: None Laceration: None Placenta: Intact, Spontaneous Cord: 3 Vessels Estimated Blood Loss: 300 [place]: Stimulated, Warmed, [place] Used Score 1 min: 8 Score 5 min: 8 Second Stage Interventions: Reports: Encouragement Given, Pushing Effectively, Pushing, Stirrups/Leg Supports Delivery Comments (Free Text/Narrative):: Gianluca 29 yo at 39.1 weeks (MIKHAIL 06/15/2020) S/P to viable term NBF with spontaneous cries at . A pos, RI, GBS pos with adequate GBS prophylaxis, symptomatic COVID pos. Dr. Del Real present at , delivered anterior shoulder, body followed with gentle traction, somersaulted through body nuchal x 2. NBF warmed, dried, stimulated, bulb suctioned; spontaneous cries. 1 min 8; NBF transported out of room to Baby RN and brought to isolation room for assessment and monitoring due to maternal symptomatic COVID pos. Placenta delivered without problem, intact, 3VC, [place]. Perineum intact. EBL 300. Mother resting comfortably in bed. - General Info Date of Service: 06/09/20 Admission Dx/Problem (Free Text): Admission Diagnosis/Problem Admission Diagnosis/Problem Planned Functional Status: Reports: Pain Controlled - Review of Systems General: Reports: No Symptoms HEENT: Reports: No Symptoms Pulmonary: Reports: No Symptoms Cardiovascular: Reports: No Symptoms Gastrointestinal: Reports: No Symptoms Genitourinary: Reports: No Symptoms Musculoskeletal: Reports: No Symptoms Skin: Reports: No Symptoms Neurological: Reports: No Symptoms Psychiatric: Reports: No Symptoms - Patient Data Vitals - Most Recent: Last Vital Signs Temp 99.4 F 06/09/20 00:58 Pulse Resp BP Pulse Ox Weight - Most Recent: 254 lb I&O - Last 24 Hours: Intake & Output 06/08/20 06/09/20 06/09/20 22:59 06:59 14:59 Intake Total 50 Output Total 650 Balance -600 Lab Results Last 24 Hours: Laboratory Results - last 24 hr 06/08/20 Range/Units 05:43 RPR Non-Reac (Non-Reac) Med Orders - Current: Current Medications Acetaminophen (Tylenol Extra Strength) 500 mg PO Q4H PRN PRN Reason: Pain Acetaminophen (Tylenol Extra Strength) 1,000 mg PO Q4H PRN PRN Reason: Pain Benzocaine/Menthol (Dermoplast Pain Relief 20%-0.5% [place]) 78 gm TOP ASDIRECTED PRN PRN Reason: Perineal Comfort Measure Bisacodyl (Dulcolax) 10 mg RECTAL ONETIME PRN PRN Reason: Constipation Docusate Sodium (Colace) 100 mg PO BID PRN PRN Reason: Constipation Emollient Ointment (Lansinoh Hpa) 0 gm TOP ASDIRECTED PRN PRN Reason: Sore Nipples Ibuprofen (Motrin) 400 mg PO Q4H PRN PRN Reason: Pain Ibuprofen (Motrin) 800 mg PO Q6H PRN PRN Reason: Pain Oxycodone HCl (Oxycodone) 5 mg PO Q2H PRN PRN Reason: Pain Witch Darline (Tucks) 1 pad TOP ASDIRECTED PRN PRN Reason: comfort care Discontinued Medications Acetaminophen (Tylenol) 1,000 mg PO Q6H PRN PRN Reason: mild pain and fever Last Admin: 06/09/20 07:01 Dose: 975 mg Documented by: Carboprost Tromethamine (Hemabate Ds) 250 mcg IM ASDIRECTED PRN PRN Reason: Post Hemorrhage Oxytocin/Sodium Chloride (Oxytocin 30 Unit/500 Ml-Ns) 30 unit in 500 mls @ 500 mls/hr IV TITRATE NEAL Tranexamic Acid 1,000 mg/ (Sodium Chloride) 110 mls @ 660 mls/hr IV ONETIME PRN PRN Reason: Bleeding Oxytocin/Sodium Chloride (Oxytocin 30 Unit/500 Ml-Ns) 30 unit in 500 mls @ 2 mls/hr IV TITRATE NEAL; Protocol Last Titration: 06/09/20 08:30 Dose: 10 munits/min, 10 mls/hr Documented by: Ampicillin Sodium 2 gm/ Sodium (Chloride) 100 mls @ 200 mls/hr IV ONETIME ONE Stop: 06/08/20 06:29 Last Admin: 06/08/20 06:24 Dose: 200 mls/hr Documented by: Lactated Ringer's (Ringers, Lactated) 1,000 mls @ 150 mls/hr IV ASDIRECTED [facility] Last Admin: 06/09/20 08:30 Dose: 150 mls/hr Documented by: Ampicillin Sodium 1 gm/ Sodium (Chloride) 50 mls @ 100 mls/hr IV Q4H [facility] [place] Last Admin: 06/09/20 10:30 Dose: 100 mls/hr Documented by: Oxytocin/Sodium Chloride (Oxytocin 30 Unit/500 Ml-Ns) Confirm Administered Dose 30 unit in 500 mls @ as directed .ROUTE .STK-MED ONE Stop: 06/08/20 19:53 Fentanyl/Bupivacaine HCl (Fentanyl/Bupivacaine/Ns 2 Mcg-0.125% 250 Ml) Confirm Administered Dose 250 mls @ as directed .ROUTE .STK-MED ONE Stop: 06/09/20 05:11 Lidocaine HCl (Xylocaine 1%) 50 ml INJECT ONETIME PRN PRN Reason: Laceration repair Methylergonovine Maleate (Methergine) 0.2 mg IM ASDIRECTED PRN PRN Reason: Post Hemorrhage Misoprostol (Cytotec) 200 mcg PO ONETIME PRN PRN Reason: Post Hemorrhage Misoprostol (Cytotec) 25 mcg VAG ONETIME PRN PRN Reason: Cervical Ripening Last Admin: 06/08/20 12:21 Dose: 25 mcg Documented by: Misoprostol (Cytotec) 25 mcg VAG Q4H PRN PRN Reason: Cervical Ripening Last Admin: 06/09/20 00:24 Dose: 25 mcg Documented by: Misoprostol (Cytotec) 25 mcg PO ONETIME ONE Stop: 06/08/20 06:01 Last Admin: 06/08/20 08:33 Dose: 25 mcg Documented by: Misoprostol (Cytotec) 25 mcg PO Q4H PRN PRN Reason: Other Last Admin: 06/09/20 00:25 Dose: 25 mcg Documented by: Nalbuphine HCl (Nubain) 10 mg IVPUSH Q1H PRN PRN Reason: Pain (severe 7-10) Ondansetron HCl (Zofran) 4 mg IVPUSH Q6H PRN PRN Reason: Nausea/Vomiting Sodium Chloride (Saline Flush) 10 ml FLUSH ASDIRECTED PRN PRN Reason: Keep Vein Open Sodium Chloride (Saline Flush) 2.5 ml FLUSH ASDIRECTED PRN PRN Reason: Keep Vein Open Sodium Chloride (Normal Saline) 10 ml IV ASDIRECTED PRN PRN Reason: IV Use Sterile Water (Sterile Water For Irrigation) 1,000 ml IRR ASDIRECTED PRN PRN Reason: delivery Terbutaline Sulfate (Brethine) 0.25 mg SUBCUT ASDIRECTED PRN PRN Reason: Tacysystole - Exam General: Alert, Oriented HEENT: Pupils Equal, Pupils Reactive, EOMI, Mucous Membr. Moist/[place] Neck: Supple Lungs: Clear to Auscultation, Normal Respiratory Effort Cardiovascular: Regular Rate, Regular Rhythm GI/Abdominal Exam: Normal Bowel Sounds, Soft, Non-Tender, No Organomegaly, No Distention, No Abnormal Bruit, No Mass, Pelvis Stable (Female) Exam: Normal External Exam, Enlarged Uterus ( uterus, U-1 firm.), Vaginal Bleeding (Small rubra lochia.) Back Exam: Normal Inspection, Full Range of Motion Extremities: Normal Inspection, Normal Range of Motion, Non-Tender, No Pedal Edema, Normal Capillary Refill Skin: Warm, Dry, Intact Wound/Incisions: Healing Well Neurological: No New Focal Deficit (BLE epidural analgesia) Psy/Mental Status: Alert, Normal Affect, Normal Mood - Problem List Review Problem List Initiated/Reviewed/Updated: Yes - My Orders Last 24 Hours: My Active Orders 06/09/20 Lunch Regular Diet [DIET] 06/09/20 12:39 Oxygen Therapy [RC] ASDIRECTED Acetaminophen [Tylenol Extra Strength] 1,000 mg PO Q4H PRN Acetaminophen [Tylenol Extra Strength] 500 mg PO Q4H PRN Benzocaine/Menthol [Dermoplast Pain Relief 20%-0.5% [place]] 78 gm TOP ASDIRECTED PRN Docusate Sodium [Colace] 100 mg PO BID PRN Ibuprofen [Motrin] 400 mg PO Q4H PRN Ibuprofen [Motrin] 800 mg PO Q6H PRN Lanolin [Lansinoh HPA] See Dose Instructions TOP ASDIRECTED PRN bisacodyL [Dulcolax] 10 mg RECTAL ONETIME PRN oxyCODONE 5 mg PO Q2H PRN witch Darline [Tucks] 1 pad TOP ASDIRECTED PRN Resuscitation Status Routine 06/09/20 12:40 Patient Status [ADT] Routine May Shower [RC] ASDIRECTED Up ad Rose [RC] ASDIRECTED Vital Signs [RC] PER UNIT ROUTINE Assess Lochia [WOMSER] Per Unit Routine Assess Uterine Involution [WOMSER] Per Unit Routine Ice Therapy [OM.PC] Per Unit Routine Perineal Care [OM.PC] Per Unit Routine Peripheral IV Discontinue [OM.PC] Routine Sitz Bath [OM.PC] Per Unit Routine 06/09/20 12:41 Cooling Warming Measures [RC] ASDIRECTED 06/10/20 05:11 CBC WITH AUTO DIFF [HEME] AM - Plan Plan:: S/P vaginal . See new orders. Plan to admit to Med Surg for observation due to COVID pos. Dr. Del Real notified and agreeable with POC.
[2020-06-09] MEDS: Acetaminophen 500 MG Tab PO PRN ×2 (17:14→23:11)
[2020-06-09] MEDS ORDERED: Ondansetron 4 MG/2 ML SDV IVPUSH PRN (19:01)
[2020-06-09] MEDS ORDERED: Promethazine 25 MG Tab PO PRN (19:02)
[2020-06-10] MEDS: Ibuprofen 800 MG Tab PO PRN ×3 (01:26→18:10)
[2020-06-10] MEDS: Lactated Ringers 1,000 ML IV SCH (02:29)
[2020-06-10] MEDS: Acetaminophen 500 MG Tab PO PRN ×3 (08:19→19:37)
--- NOTE | 2020-06-10 08:33 | PCM48HPAN ---
Post Anesthesia Note - EVALUATION WITHIN 48HRS OF ANESTHETIC Vital Signs in Normal Range: Yes Patient Participated in Evaluation: Yes (Evaluated by RN and certified nurse midwife) Respiratory Function Stable: Yes Airway Patent: Yes Cardiovascular Function Stable: Yes Hydration Status Stable: Yes (Taking PO well, no nausea) Pain Control Satisfactory: Yes (Pain 2-3/10 at rest, adequate pain control.) Nausea and Vomiting Control Satisfactory: Yes Mental Status Recovered: Yes Vital Signs: Last Vital Signs Temp 35.8 C L 06/10/20 08:00 Pulse 78 06/10/20 08:00 Resp 16 06/10/20 08:00 BP 97/72 06/10/20 08:00 Pulse Ox 100 06/10/20 08:00 - COMMENTS/OBSERVATIONS Free Text/Narrative:: Pt COVID +, all information per RN and certified nurse midwife who had just completed morning assessments. Continues to feel fatigued and generally "achey," but mild. Previous respiratory pain and chills have not recurred. Pt has been ambulating in room without difficulty, reports full return of strength and sensation to BLE. Plan is to monitor for one more night as inpatient. Okay to discharge from anesthesia coverage.
--- NOTE | 2020-06-10 08:53 | PCM.PNPP ---
- General Info Date of Service: 06/10/20 Admission Dx/Problem (Free Text): Admission Diagnosis/Problem Admission Diagnosis/Problem Planned Subjective Update: Doing well this morning, have some mild chills and feverish feelings overnight after epidural was placed. Tylenol helped with this. No complaints of SOB. Sats 99% on RA. Functional Status: Reports: Pain Controlled, Tolerating Diet - Review of Systems General: Reports: Fatigue HEENT: Reports: No Symptoms Pulmonary: Denies: Shortness of Breath Cardiovascular: Denies: Chest Pain Gastrointestinal: Reports: No Symptoms Genitourinary: Reports: No Symptoms Musculoskeletal: Reports: No Symptoms Skin: Reports: No Symptoms Neurological: Reports: No Symptoms Psychiatric: Reports: No Symptoms - General Info Date of Service: 06/10/20 - Patient Data Vital Signs - Most Recent: Last Vital Signs Temp 96.4 F L 06/10/20 08:00 Pulse 78 06/10/20 08:00 Resp 16 06/10/20 08:00 BP 97/72 06/10/20 08:00 Pulse Ox 100 06/10/20 08:00 Weight - Most Recent: 254 lb Lab Results - Last 24 Hours: Laboratory Results - last 24 hr 06/08/20 06/10/20 Range/Units 05:43 06:50 WBC 4.39 (4.0-11.0) K/uL RBC 3.50 L (4.30-5.90) M/uL Hgb 10.6 L (12.0-16.0) g/dL Hct 32.6 L (36.0-46.0) % MCV 93.1 (80.0-98.0) fL MCH 30.3 (27.0-32.0) pg MCHC 32.5 (31.0-37.0) g/dL RDW Std Deviation 51.6 (28.0-62.0) fl RDW Coeff of Mary 15 (11.0-15.0) % Plt Count 149 L (150-400) K/uL MPV 10.80 (7.40-12.00) fL Neut % (Auto) 65.9 (48.0-80.0) % Lymph % (Auto) 23.9 (16.0-40.0) % [place] % (Auto) 9.8 (0.0-15.0) % Eos % (Auto) 0.2 (0.0-7.0) % Baso % (Auto) 0.2 (0.0-1.5) % Neut # (Auto) 2.9 (1.4-5.7) K/uL Lymph # (Auto) 1.1 (0.6-2.4) K/uL [place] # (Auto) 0.4 (0.0-0.8) K/uL Eos # (Auto) 0.0 (0.0-0.7) K/uL Baso # (Auto) 0.0 (0.0-0.1) K/uL Nucleated RBC % 0.0 /100WBC Nucleated RBCs # 0 K/uL RPR Non-Reac (Non-Reac) Med Orders - Current: Current Medications Acetaminophen (Tylenol Extra Strength) 500 mg PO Q4H PRN PRN Reason: Pain Acetaminophen (Tylenol Extra Strength) 1,000 mg PO Q4H PRN PRN Reason: Pain Last Admin: 06/10/20 08:19 Dose: 1,000 mg Documented by: Benzocaine/Menthol (Dermoplast Pain Relief 20%-0.5% [place]) 78 gm TOP ASDIRECTED PRN PRN Reason: Perineal Comfort Measure Last Admin: 06/09/20 17:14 Dose: 1 canister Documented by: Bisacodyl (Dulcolax) 10 mg RECTAL ONETIME PRN PRN Reason: Constipation Docusate Sodium (Colace) 100 mg PO BID PRN PRN Reason: Constipation Emollient Ointment (Lansinoh Hpa) 0 gm TOP ASDIRECTED PRN PRN Reason: Sore Nipples Lactated Ringer's (Ringers, Lactated) 1,000 mls @ 125 mls/hr IV ASDIRECTED NEAL Last Admin: 06/10/20 02:29 Dose: 125 mls/hr Documented by: Ibuprofen (Motrin) 400 mg PO Q4H PRN PRN Reason: Pain Ibuprofen (Motrin) 800 mg PO Q6H PRN PRN Reason: Pain Last Admin: 06/10/20 01:26 Dose: 800 mg Documented by: Ondansetron HCl (Zofran) 4 mg IVPUSH Q4H PRN PRN Reason: Nausea Last Admin: 06/09/20 20:02 Dose: 4 mg Documented by: Oxycodone HCl (Oxycodone) 5 mg PO Q2H PRN PRN Reason: Pain Promethazine HCl (Phenergan) 25 - 50 mg PO Q6H PRN PRN Reason: Nausea/Vomiting Witch Darline (Tucks) 1 pad TOP ASDIRECTED PRN PRN Reason: comfort care Last Admin: 06/09/20 17:13 Dose: 1 tub Documented by: Discontinued Medications Acetaminophen (Tylenol) 1,000 mg PO Q6H PRN PRN Reason: mild pain and fever Last Admin: 06/09/20 07:01 Dose: 975 mg Documented by: Carboprost Tromethamine (Hemabate Ds) 250 mcg IM ASDIRECTED PRN PRN Reason: Post Hemorrhage Oxytocin/Sodium Chloride (Oxytocin 30 Unit/500 Ml-Ns) 30 unit in 500 mls @ 500 mls/hr IV TITRATE NEAL Tranexamic Acid 1,000 mg/ (Sodium Chloride) 110 mls @ 660 mls/hr IV ONETIME PRN PRN Reason: Bleeding Oxytocin/Sodium Chloride (Oxytocin 30 Unit/500 Ml-Ns) 30 unit in 500 mls @ 2 mls/hr IV TITRATE [facility]; Protocol Last Titration: 06/09/20 12:05 Dose: 14 munits/min, 14 mls/hr Documented by: Ampicillin Sodium 2 gm/ Sodium (Chloride) 100 mls @ 200 mls/hr IV ONETIME ONE Stop: 06/08/20 06:29 Last Admin: 06/08/20 06:24 Dose: 200 mls/hr Documented by: Lactated Ringer's (Ringers, Lactated) 1,000 mls @ 150 mls/hr IV ASDIRECTED NEAL Last Admin: 06/09/20 08:30 Dose: 150 mls/hr Documented by: Ampicillin Sodium 1 gm/ Sodium (Chloride) 50 mls @ 100 mls/hr IV Q4H NEAL Last Admin: 06/09/20 10:30 Dose: 100 mls/hr Documented by: Oxytocin/Sodium Chloride (Oxytocin 30 Unit/500 Ml-Ns) Confirm Administered Dose 30 unit in 500 mls @ as directed .ROUTE .STK-MED ONE Stop: 06/08/20 19:53 Fentanyl/Bupivacaine HCl (Fentanyl/Bupivacaine/Ns 2 Mcg-0.125% 250 Ml) Confirm Administered Dose 250 mls @ as directed .ROUTE .STK-MED ONE Stop: 06/09/20 05:11 Lidocaine HCl (Xylocaine 1%) 50 ml INJECT ONETIME PRN PRN Reason: Laceration repair Methylergonovine Maleate (Methergine) 0.2 mg IM ASDIRECTED PRN PRN Reason: Post Hemorrhage Misoprostol (Cytotec) 200 mcg PO ONETIME PRN PRN Reason: Post Hemorrhage Misoprostol (Cytotec) 25 mcg VAG ONETIME PRN PRN Reason: Cervical Ripening Last Admin: 06/08/20 12:21 Dose: 25 mcg Documented by: Misoprostol (Cytotec) 25 mcg VAG Q4H PRN PRN Reason: Cervical Ripening Last Admin: 06/09/20 00:24 Dose: 25 mcg Documented by: Misoprostol (Cytotec) 25 mcg PO ONETIME ONE Stop: 06/08/20 06:01 Last Admin: 06/08/20 08:33 Dose: 25 mcg Documented by: Misoprostol (Cytotec) 25 mcg PO Q4H PRN PRN Reason: Other Last Admin: 06/09/20 00:25 Dose: 25 mcg Documented by: Nalbuphine HCl (Nubain) 10 mg IVPUSH Q1H PRN PRN Reason: Pain (severe 7-10) Ondansetron HCl (Zofran) 4 mg IVPUSH Q6H PRN PRN Reason: Nausea/Vomiting Sodium Chloride (Saline Flush) 10 ml FLUSH ASDIRECTED PRN PRN Reason: Keep Vein Open Sodium Chloride (Saline Flush) 2.5 ml FLUSH ASDIRECTED PRN PRN Reason: Keep Vein Open Sodium Chloride (Normal Saline) 10 ml IV ASDIRECTED PRN PRN Reason: IV Use Sterile Water (Sterile Water For Irrigation) 1,000 ml IRR ASDIRECTED PRN PRN Reason: delivery Terbutaline Sulfate (Brethine) 0.25 mg SUBCUT ASDIRECTED PRN PRN Reason: Tacysystole - Interaction Interaction: Not Applicable Infant Feeding: Other (see below) (pumping) Support Person: Significant Other - Recovery Exam Fundal Tone: Firm Fundal Level: At Umbilicus Fundal Placement: Midline Lochia Amount: Small Lochia Color: Rubra/Red Perineum Description: Intact, Minimal Bruising/Swelling Episiotomy/Laceration: None Bladder Status: Voiding Urinary Elimination: Voided - Exam General: Alert, Oriented, Cooperative, No Acute Distress Lungs: Clear to Auscultation, Normal Respiratory Effort Cardiovascular: Regular Rate, Regular Rhythm GI/Abdominal Exam: Soft, Non-Tender Extremities: Normal Inspection, Normal Range of Motion, Non-Tender, Normal Capillary Refill Skin: Warm, Dry, Intact Neurological: No New Focal Deficit, Normal Speech, Normal Tone Psy/Mental Status: Alert, Normal Affect, Normal Mood - Problem List & Annotations (1) (spontaneous vaginal delivery) SNOMED Code(s): 754462329 Code(s): O80 - ENCOUNTER FOR FULL-TERM UNCOMPLICATED DELIVERY Status: Acute Priority: High Current Visit: Yes (2) COVID-19 affecting in third trimester SNOMED Code(s): 914067786, 457899501 Code(s): O98.513 - OTHER VIRAL DISEASES COMPLICATING , THIRD TRIMESTER; U07.1 - COVID-19 Status: Acute Priority: High Current Visit: Yes - Problem List Review Problem List Initiated/Reviewed/Updated: Yes - Plan Plan:: S/P vaginal . See new orders. Plan to admit to Med Surg for observation due to COVID pos. Dr. Del Real notified and agreeable with POC. PP Day 1 A: Denies shortness of breath, chills or chest pain at this time. Tolerating diet and urinating. Continues to pump to feed; supplemented with formula. Reports decrease in chills and states she is feeling "better today". No concerns/questions at this time. P: Plan to stay one more night and discharge tomorrow (06/11) morning. Reinforce recommendations for COVID+ mom and care of baby after discharge. Routine plan of care otherwise. Dr. Del Real updated.
--- NOTE | 2020-06-10 12:18 | PCM.CONSN ---
- General Info Date of Service: 06/10/20 Admission Dx/Problem (Free Text): Admission Diagnosis/Problem Admission Diagnosis/Problem Planned Subjective Update: Reports feeling well this morning, NO chest pain or SOB. No other concerns. had some chest burning in the middle of the night. No concerns this morning. Functional Status: Reports: Pain Controlled - Review of Systems General: Reports: No Symptoms. Denies: Weakness, Fatigue, Malaise Pulmonary: Reports: No Symptoms. Denies: Shortness of Breath Cardiovascular: Reports: No Symptoms. Denies: Chest Pain Gastrointestinal: Reports: No Symptoms. Denies: Abdominal Pain, Nausea, Vomiting Neurological: Reports: No Symptoms Psychiatric: Reports: No Symptoms - Patient Data Vitals - Most Recent: Last Vital Signs Temp 96.4 F L 06/10/20 08:00 Pulse 78 06/10/20 08:00 Resp 16 06/10/20 08:00 BP 97/72 06/10/20 08:00 Pulse Ox 100 06/10/20 08:00 Weight - Most Recent: 115.212 kg Lab Results Last 24 Hours: Laboratory Results - last 24 hr 06/10/20 Range/Units 06:50 WBC 4.39 (4.0-11.0) K/uL RBC 3.50 L (4.30-5.90) M/uL Hgb 10.6 L (12.0-16.0) g/dL Hct 32.6 L (36.0-46.0) % MCV 93.1 (80.0-98.0) fL MCH 30.3 (27.0-32.0) pg MCHC 32.5 (31.0-37.0) g/dL RDW Std Deviation 51.6 (28.0-62.0) fl RDW Coeff of Mary 15 (11.0-15.0) % Plt Count 149 L (150-400) K/uL MPV 10.80 (7.40-12.00) fL Neut % (Auto) 65.9 (48.0-80.0) % Lymph % (Auto) 23.9 (16.0-40.0) % Barber % (Auto) 9.8 (0.0-15.0) % Eos % (Auto) 0.2 (0.0-7.0) % Baso % (Auto) 0.2 (0.0-1.5) % Neut # (Auto) 2.9 (1.4-5.7) K/uL Lymph # (Auto) 1.1 (0.6-2.4) K/uL Barber # (Auto) 0.4 (0.0-0.8) K/uL Eos # (Auto) 0.0 (0.0-0.7) K/uL Baso # (Auto) 0.0 (0.0-0.1) K/uL Nucleated RBC % 0.0 /100WBC Nucleated RBCs # 0 K/uL Med Orders - Current: Current Medications Acetaminophen (Tylenol Extra Strength) 500 mg PO Q4H PRN PRN Reason: Pain Acetaminophen (Tylenol Extra Strength) 1,000 mg PO Q4H PRN PRN Reason: Pain Last Admin: 06/10/20 08:19 Dose: 1,000 mg Documented by: Benzocaine/Menthol (Dermoplast Pain Relief 20%-0.5% [place]) 78 gm TOP ASDIRECTED PRN PRN Reason: Perineal Comfort Measure Last Admin: 06/09/20 17:14 Dose: 1 canister Documented by: Bisacodyl (Dulcolax) 10 mg RECTAL ONETIME PRN PRN Reason: Constipation Docusate Sodium (Colace) 100 mg PO BID PRN PRN Reason: Constipation Emollient Ointment (Lansinoh Hpa) 0 gm TOP ASDIRECTED PRN PRN Reason: Sore Nipples Lactated Ringer's (Ringers, Lactated) 1,000 mls @ 125 mls/hr IV ASDIRECTED NEAL Last Admin: 06/10/20 02:29 Dose: 125 mls/hr Documented by: Ibuprofen (Motrin) 400 mg PO Q4H PRN PRN Reason: Pain Ibuprofen (Motrin) 800 mg PO Q6H PRN PRN Reason: Pain Last Admin: 06/10/20 10:18 Dose: 800 mg Documented by: Ondansetron HCl (Zofran) 4 mg IVPUSH Q4H PRN PRN Reason: Nausea Last Admin: 06/09/20 20:02 Dose: 4 mg Documented by: Oxycodone HCl (Oxycodone) 5 mg PO Q2H PRN PRN Reason: Pain Promethazine HCl (Phenergan) 25 - 50 mg PO Q6H PRN PRN Reason: Nausea/Vomiting Witgisell Gregorio (Tucks) 1 pad TOP ASDIRECTED PRN PRN Reason: comfort care Last Admin: 06/09/20 17:13 Dose: 1 tub Documented by: Discontinued Medications Acetaminophen (Tylenol) 1,000 mg PO Q6H PRN PRN Reason: mild pain and fever Last Admin: 06/09/20 07:01 Dose: 975 mg Documented by: Carboprost Tromethamine (Hemabate Ds) 250 mcg IM ASDIRECTED PRN PRN Reason: Post Hemorrhage Oxytocin/Sodium Chloride (Oxytocin 30 Unit/500 Ml-Ns) 30 unit in 500 mls @ 500 mls/hr IV TITRATE [facility]AL Tranexamic Acid 1,000 mg/ (Sodium Chloride) 110 mls @ 660 mls/hr IV ONETIME PRN PRN Reason: Bleeding Oxytocin/Sodium Chloride (Oxytocin 30 Unit/500 Ml-Ns) 30 unit in 500 mls @ 2 mls/hr IV TITRATE [facility]; Protocol Last Titration: 06/09/20 12:05 Dose: 14 munits/min, 14 mls/hr Documented by: Ampicillin Sodium 2 gm/ Sodium (Chloride) 100 mls @ 200 mls/hr IV ONETIME ONE Stop: 06/08/20 06:29 Last Admin: 06/08/20 06:24 Dose: 200 mls/hr Documented by: Lactated Ringer's (Ringers, Lactated) 1,000 mls @ 150 mls/hr IV ASDIRECTED NEAL Last Admin: 06/09/20 08:30 Dose: 150 mls/hr Documented by: Ampicillin Sodium 1 gm/ Sodium (Chloride) 50 mls @ 100 mls/hr IV Q4H [facility] Last Admin: 06/09/20 10:30 Dose: 100 mls/hr Documented by: Oxytocin/Sodium Chloride (Oxytocin 30 Unit/500 Ml-Ns) Confirm Administered Dose 30 unit in 500 mls @ as directed .ROUTE .STK-MED ONE Stop: 06/08/20 19:53 Fentanyl/Bupivacaine HCl (Fentanyl/Bupivacaine/Ns 2 Mcg-0.125% 250 Ml) Confirm Administered Dose 250 mls @ as directed .ROUTE .STK-MED ONE Stop: 06/09/20 05:11 Lidocaine HCl (Xylocaine 1%) 50 ml INJECT ONETIME PRN PRN Reason: Laceration repair Methylergonovine Maleate (Methergine) 0.2 mg IM ASDIRECTED PRN PRN Reason: Post Hemorrhage Misoprostol (Cytotec) 200 mcg PO ONETIME PRN PRN Reason: Post Hemorrhage Misoprostol (Cytotec) 25 mcg VAG ONETIME PRN PRN Reason: Cervical Ripening Last Admin: 06/08/20 12:21 Dose: 25 mcg Documented by: Misoprostol (Cytotec) 25 mcg VAG Q4H PRN PRN Reason: Cervical Ripening Last Admin: 06/09/20 00:24 Dose: 25 mcg Documented by: Misoprostol (Cytotec) 25 mcg PO ONETIME ONE Stop: 06/08/20 06:01 Last Admin: 06/08/20 08:33 Dose: 25 mcg Documented by: Misoprostol (Cytotec) 25 mcg PO Q4H PRN PRN Reason: Other Last Admin: 06/09/20 00:25 Dose: 25 mcg Documented by: Nalbuphine HCl (Nubain) 10 mg IVPUSH Q1H PRN PRN Reason: Pain (severe 7-10) Ondansetron HCl (Zofran) 4 mg IVPUSH Q6H PRN PRN Reason: Nausea/Vomiting Sodium Chloride (Saline Flush) 10 ml FLUSH ASDIRECTED PRN PRN Reason: Keep Vein Open Sodium Chloride (Saline Flush) 2.5 ml FLUSH ASDIRECTED PRN PRN Reason: Keep Vein Open Sodium Chloride (Normal Saline) 10 ml IV ASDIRECTED PRN PRN Reason: IV Use Sterile Water (Sterile Water For Irrigation) 1,000 ml IRR ASDIRECTED PRN PRN Reason: delivery Terbutaline Sulfate (Brethine) 0.25 mg SUBCUT ASDIRECTED PRN PRN Reason: Tacysystole - Exam General: Alert, Oriented, Cooperative Lungs: Clear to Auscultation, Normal Respiratory Effort Cardiovascular: Regular Rate, Regular Rhythm GI/Abdominal Exam: Normal Bowel Sounds, Soft, Non-Tender Extremities: Normal Inspection, Normal Range of Motion, Non-Tender, No Pedal Edema Neurological: No New Focal Deficit Psy/Mental Status: Alert, Normal Affect, Normal Mood Sepsis Event Note - Evaluation Sepsis Screening Result: No Definite Risk - Focused Exam Vital Signs: Vital Signs Temp Pulse Resp BP Pulse Ox 06/10/20 08:00 96.4 F L 78 16 97/72 100 06/10/20 06:00 96.3 F L 68 16 100/55 L 99 06/10/20 03:15 98.3 F 94 16 117/62 100 06/10/20 01:00 99.3 F Consult PN Assessment/Plan Procedures: Procedures ASSAY OF BLOOD/URIC ACID (04/16/20) ASSAY OF FREE THYROXINE (03/29/20) ASSAY OF MAGNESIUM (04/17/20) ASSAY OF PROTEIN URINE (05/11/20) ASSAY OF URINE CREATININE (05/11/20) ASSAY THYROID STIM HORMONE (03/29/20) BLOOD TYPING SEROLOGIC ABO (12/26/19) BLOOD TYPING SEROLOGIC RH(D) (12/26/19) CHORIONIC GONADOTROPIN TEST (11/26/19) CHYLMD TRACH DNA AMP PROBE (12/26/19) COMPLETE CBC AUTOMATED (04/17/20) COMPLETE CBC W/AUTO DIFF WBC (04/01/20) COMPREHEN METABOLIC PANEL (04/17/20) CULTURE SCREEN ONLY (05/18/20) DRUG TEST PRSMV DIR OPT OBS (11/28/19) EMERGENCY DEPT VISIT (06/09/19) EXTREMITY STUDY (04/22/20) NON-STRESS TEST (06/01/20) GLUCOSE BLOOD TEST (04/17/20) GLUCOSE TEST (12/26/19) GLUCOSE TOLERANCE TEST (GTT) (02/25/20) HEPATITIS B SURFACE AG IA (12/26/19) HEPATITIS C AB TEST (12/26/19) HIV-1 AG W/HIV-1 & HIV-2 AB (12/26/19) INFLUENZA ASSAY W/OPTIC (09/11/19) MEDICAL NUTRITION INDIV IN (03/10/20) N.GONORRHOEAE DNA AMP PROB (12/26/19) OB US >/= 14 WKS SNGL FETUS (02/10/20) OB US FOLLOW-UP PER FETUS (05/18/20) RBC ANTIBODY SCREEN (02/25/20) ROUTINE VENIPUNCTURE (04/17/20) RUBELLA ANTIBODY (12/26/19) SYPHILIS TEST NON-TREP QUAL (12/26/19) SYPHILIS TEST NON-TREP QUANT (12/26/19) TRANSVAGINAL US OBSTETRIC (02/10/20) TTE W/DOPPLER COMPLETE (04/29/20) URINALYSIS AUTO W/O SCOPE (04/17/20) URINE CULTURE/COLONY COUNT (11/28/19) X-RAY EXAM CHEST 2 VIEWS (09/11/19) (1) COVID-19 affecting in third trimester SNOMED Code(s): 372497135, 081467596 Code(s): O98.513 - OTHER VIRAL DISEASES COMPLICATING , THIRD TRIMESTER; U07.1 - COVID-19 Priority: High Current Visit: Yes Problem List Initiated/Reviewed/Updated: Yes Plan: This 29 year old female admitted with COVID 19 infection, currentlye asymptomatic. Hospitalist team consulted for medical management of COVID 19 infection 1. COVID 19 infection - Supportive care currently - Doing well and no hypoxia - Likely DC in am. - Contact Hospitalist service if hypoxia sats under 90% or shortness of breath occur.
[2020-06-11] MEDS: Acetaminophen 500 MG Tab PO PRN ×2 (03:11→11:11)
[2020-06-11] MEDS: Ibuprofen 800 MG Tab PO PRN (07:57)
--- NOTE | 2020-06-11 09:02 | PCM.CONSN ---
- General Info Date of Service: 06/11/20 Admission Dx/Problem (Free Text): Admission Diagnosis/Problem Admission Diagnosis/Problem Planned Subjective Update: Doing well this morning, sitting up in bed. No concerns. Intermittent dry cough. Otherwise eager to be discharged home. Functional Status: Reports: Pain Controlled, Tolerating Diet, Ambulating, Urinating - Review of Systems General: Reports: No Symptoms HEENT: Reports: No Symptoms Pulmonary: Reports: Cough. Denies: Shortness of Breath, Pleuritic Chest Pain, Sputum, Wheezing Cardiovascular: Reports: No Symptoms. Denies: Chest Pain Gastrointestinal: Reports: No Symptoms. Denies: Abdominal Pain, Nausea, Vomiting Neurological: Reports: No Symptoms Psychiatric: Reports: No Symptoms - Patient Data Vitals - Most Recent: Last Vital Signs Temp 98.0 F 06/11/20 07:55 Pulse 85 06/11/20 07:55 Resp 17 06/11/20 07:55 BP 110/71 06/11/20 07:55 Pulse Ox 100 06/11/20 07:55 Weight - Most Recent: 115.212 kg Med Orders - Current: Current Medications Acetaminophen (Tylenol Extra Strength) 500 mg PO Q4H PRN PRN Reason: Pain Acetaminophen (Tylenol Extra Strength) 1,000 mg PO Q4H PRN PRN Reason: Pain Last Admin: 06/11/20 03:11 Dose: 1,000 mg Documented by: Benzocaine/Menthol (Dermoplast Pain Relief 20%-0.5% [place]) 78 gm TOP ASDIRECTED PRN PRN Reason: Perineal Comfort Measure Last Admin: 06/09/20 17:14 Dose: 1 canister Documented by: Bisacodyl (Dulcolax) 10 mg RECTAL ONETIME PRN PRN Reason: Constipation Docusate Sodium (Colace) 100 mg PO BID PRN PRN Reason: Constipation Last Admin: 06/10/20 21:40 Dose: 100 mg Documented by: Emollient Ointment (Lansinoh Hpa) 0 gm TOP ASDIRECTED PRN PRN Reason: Sore Nipples Lactated Ringer's (Ringers, Lactated) 1,000 mls @ 125 mls/hr IV ASDIRECTED NEAL Last Admin: 06/10/20 02:29 Dose: 125 mls/hr Documented by: Ibuprofen (Motrin) 400 mg PO Q4H PRN PRN Reason: Pain Ibuprofen (Motrin) 800 mg PO Q6H PRN PRN Reason: Pain Last Admin: 06/11/20 07:57 Dose: 800 mg Documented by: Ondansetron HCl (Zofran) 4 mg IVPUSH Q4H PRN PRN Reason: Nausea Last Admin: 06/09/20 20:02 Dose: 4 mg Documented by: Oxycodone HCl (Oxycodone) 5 mg PO Q2H PRN PRN Reason: Pain Promethazine HCl (Phenergan) 25 - 50 mg PO Q6H PRN PRN Reason: Nausea/Vomiting Witch Darline (Tucks) 1 pad TOP ASDIRECTED PRN PRN Reason: comfort care Last Admin: 06/09/20 17:13 Dose: 1 tub Documented by: Discontinued Medications Acetaminophen (Tylenol) 1,000 mg PO Q6H PRN PRN Reason: mild pain and fever Last Admin: 06/09/20 07:01 Dose: 975 mg Documented by: Carboprost Tromethamine (Hemabate Ds) 250 mcg IM ASDIRECTED PRN PRN Reason: Post Hemorrhage Oxytocin/Sodium Chloride (Oxytocin 30 Unit/500 Ml-Ns) 30 unit in 500 mls @ 500 mls/hr IV TITRATE [facility] Tranexamic Acid 1,000 mg/ (Sodium Chloride) 110 mls @ 660 mls/hr IV ONETIME PRN PRN Reason: Bleeding Oxytocin/Sodium Chloride (Oxytocin 30 Unit/500 Ml-Ns) 30 unit in 500 mls @ 2 mls/hr IV TITRATE [facility]; Protocol Last Titration: 06/09/20 12:05 Dose: 14 munits/min, 14 mls/hr Documented by: Ampicillin Sodium 2 gm/ Sodium (Chloride) 100 mls @ 200 mls/hr IV ONETIME ONE Stop: 06/08/20 06:29 Last Admin: 06/08/20 06:24 Dose: 200 mls/hr Documented by: Lactated Ringer's (Ringers, Lactated) 1,000 mls @ 150 mls/hr IV ASDIRECTED NEAL Last Admin: 06/09/20 08:30 Dose: 150 mls/hr Documented by: Ampicillin Sodium 1 gm/ Sodium (Chloride) 50 mls @ 100 mls/hr IV Q4H [facility] Last Admin: 06/09/20 10:30 Dose: 100 mls/hr Documented by: Oxytocin/Sodium Chloride (Oxytocin 30 Unit/500 Ml-Ns) Confirm Administered Dose 30 unit in 500 mls @ as directed .ROUTE .STK-MED ONE Stop: 06/08/20 19:53 Fentanyl/Bupivacaine HCl (Fentanyl/Bupivacaine/Ns 2 Mcg-0.125% 250 Ml) Confirm Administered Dose 250 mls @ as directed .ROUTE .STK-MED ONE Stop: 06/09/20 05:11 Lidocaine HCl (Xylocaine 1%) 50 ml INJECT ONETIME PRN PRN Reason: Laceration repair Methylergonovine Maleate (Methergine) 0.2 mg IM ASDIRECTED PRN PRN Reason: Post Hemorrhage Misoprostol (Cytotec) 200 mcg PO ONETIME PRN PRN Reason: Post Hemorrhage Misoprostol (Cytotec) 25 mcg VAG ONETIME PRN PRN Reason: Cervical Ripening Last Admin: 06/08/20 12:21 Dose: 25 mcg Documented by: Misoprostol (Cytotec) 25 mcg VAG Q4H PRN PRN Reason: Cervical Ripening Last Admin: 06/09/20 00:24 Dose: 25 mcg Documented by: Misoprostol (Cytotec) 25 mcg PO ONETIME ONE Stop: 06/08/20 06:01 Last Admin: 06/08/20 08:33 Dose: 25 mcg Documented by: Misoprostol (Cytotec) 25 mcg PO Q4H PRN PRN Reason: Other Last Admin: 06/09/20 00:25 Dose: 25 mcg Documented by: Nalbuphine HCl (Nubain) 10 mg IVPUSH Q1H PRN PRN Reason: Pain (severe 7-10) Ondansetron HCl (Zofran) 4 mg IVPUSH Q6H PRN PRN Reason: Nausea/Vomiting Sodium Chloride (Saline Flush) 10 ml FLUSH ASDIRECTED PRN PRN Reason: Keep Vein Open Sodium Chloride (Saline Flush) 2.5 ml FLUSH ASDIRECTED PRN PRN Reason: Keep Vein Open Sodium Chloride (Normal Saline) 10 ml IV ASDIRECTED PRN PRN Reason: IV Use Sterile Water (Sterile Water For Irrigation) 1,000 ml IRR ASDIRECTED PRN PRN Reason: delivery Terbutaline Sulfate (Brethine) 0.25 mg SUBCUT ASDIRECTED PRN PRN Reason: Tacysystole - Exam Quality Assessment: No: Supplemental Oxygen General: Alert, Oriented, Cooperative, No Acute Distress Lungs: Clear to Auscultation, Normal Respiratory Effort Cardiovascular: Regular Rate, Regular Rhythm GI/Abdominal Exam: Normal Bowel Sounds, Soft, Non-Tender Extremities: Normal Inspection, Normal Range of Motion, Non-Tender, No Pedal Edema Neurological: No New Focal Deficit Psy/Mental Status: Alert, Normal Affect, Normal Mood Sepsis Event Note - Evaluation Sepsis Screening Result: No Definite Risk - Focused Exam Vital Signs: Vital Signs Temp Temp Pulse Resp BP Pulse Ox 06/11/20 07:55 98.0 F 85 17 110/71 100 06/11/20 03:10 97.3 F 84 16 117/62 100 Consult PN Assessment/Plan Procedures: Procedures ASSAY OF BLOOD/URIC ACID (04/16/20) ASSAY OF FREE THYROXINE (03/29/20) ASSAY OF MAGNESIUM (04/17/20) ASSAY OF PROTEIN URINE (05/11/20) ASSAY OF URINE CREATININE (05/11/20) ASSAY THYROID STIM HORMONE (03/29/20) BLOOD TYPING SEROLOGIC ABO (12/26/19) BLOOD TYPING SEROLOGIC RH(D) (12/26/19) CHORIONIC GONADOTROPIN TEST (11/26/19) CHYLMD TRACH DNA AMP PROBE (12/26/19) COMPLETE CBC AUTOMATED (04/17/20) COMPLETE CBC W/AUTO DIFF WBC (04/01/20) COMPREHEN METABOLIC PANEL (04/17/20) CULTURE SCREEN ONLY (05/18/20) DRUG TEST PRSMV DIR OPT OBS (11/28/19) EMERGENCY DEPT VISIT (06/09/19) EXTREMITY STUDY (04/22/20) NON-STRESS TEST (06/01/20) GLUCOSE BLOOD TEST (04/17/20) GLUCOSE TEST (12/26/19) GLUCOSE TOLERANCE TEST (GTT) (02/25/20) HEPATITIS B SURFACE AG IA (12/26/19) HEPATITIS C AB TEST (12/26/19) HIV-1 AG W/HIV-1 & HIV-2 AB (12/26/19) INFLUENZA ASSAY W/OPTIC (09/11/19) MEDICAL NUTRITION INDIV IN (03/10/20) N.GONORRHOEAE DNA AMP PROB (12/26/19) OB US >/= 14 WKS SNGL FETUS (02/10/20) OB US FOLLOW-UP PER FETUS (05/18/20) RBC ANTIBODY SCREEN (02/25/20) ROUTINE VENIPUNCTURE (04/17/20) RUBELLA ANTIBODY (12/26/19) SYPHILIS TEST NON-TREP QUAL (12/26/19) SYPHILIS TEST NON-TREP QUANT (12/26/19) TRANSVAGINAL US OBSTETRIC (02/10/20) TTE W/DOPPLER COMPLETE (04/29/20) URINALYSIS AUTO W/O SCOPE (04/17/20) URINE CULTURE/COLONY COUNT (11/28/19) X-RAY EXAM CHEST 2 VIEWS (09/11/19) (1) COVID-19 affecting in third trimester SNOMED Code(s): 253981420, 383051473 Code(s): O98.513 - OTHER VIRAL DISEASES COMPLICATING , THIRD TRIMESTER; U07.1 - COVID-19 Priority: High Current Visit: Yes Problem List Initiated/Reviewed/Updated: Yes Plan: This 29 year old female admitted with COVID 19 infection, currentlye asymptomatic. Hospitalist team consulted for medical management of COVID 19 infection 1. COVID 19 infection - Supportive care currently - Doing well and no hypoxia - Hospitalist will sign off at this time. Please re consult if concerns arise. Discussed quarantine and at home care with CRAIG Greco. She will be on 10 day quarantine at home until Jun 18. She was encouraged to wear a mask at home. Reports is feeling much better today. All questions and concerns addressed.
== END 2020-06-11 12:57 | disposition home or self-care (01) | DRG 805 ==
LOC: MW.OB 05:13 → MW.OBCHECK 05:13 → MW.OB 05:32 → UNDOADMOB 05:32 → MW.OBCHECK 05:32 → INTOOBSV 12:16 → OBSVTOIN 12:16 → MW.OB 16:37 → OBSVTOIN 06-09 12:16 → MW.OB 06-09 12:16 → UNDODISIN 06-11 12:57
PROVIDERS: ADMIT Obstetrics & Gynecology; ATTEND Obstetrics & Gynecology
PROC: 10E0XZZ Delivery of Products of Conception, External Approach (ICD-10-PCS; principal; 2020-06-08)
PROC: 3E0P7VZ Introduction of Hormone into Female Reproductive, Via Natural or Artificial Opening (ICD-10-PCS; 2020-06-08)
PROC: 3E0R3BZ Introduction of Anesthetic Agent into Spinal Canal, Percutaneous Approach (ICD-10-PCS; 2020-06-08)
PROC: 00HU33Z Insertion of Infusion Device into Spinal Canal, Percutaneous Approach (ICD-10-PCS; 2020-06-08)
DX: O24.429 Gestational diabetes mellitus in childbirth, unspecified control (principal); U07.1 COVID-19; Z37.0 Single live birth; O98.52 Other viral diseases complicating childbirth; Z3A.39 39 weeks gestation of pregnancy; O69.81X0 Labor and delivery complicated by cord around neck, without compression, not applicable or unspecified
CPT/HCPCS: 01967; 36415; 51702; 59025; 59409; 85025; 85027; 86592; 86850; 86900; 86901; 99221; 99231; A9270-GY; J0290; J2405; J2590; J7050; J7120; U0002

== ENCOUNTER 2020-06-24 16:16 | Emergency (ER) | payer MEDICAID, OTHER ==
[2020-06-24] MEDS ORDERED: Sodium Chloride 0.9% 10 ML Syringe FLUSH PRN (16:39)
[2020-06-24] MEDS ORDERED: Sodium Chloride 0.9% 2.5 ML Syringe FLUSH PRN (16:39)
[2020-06-24] MEDS ORDERED: Morphine 4 MG/ML Syringe IVPUSH ONE (16:45)
[2020-06-24] MEDS ORDERED: Ketorolac 30 MG/ML SDV IVPUSH ONE (16:45)
[2020-06-24 17:44] LABS: BLOOD UREA NITROGEN,BUN 8 mg/dL (7.0-18.0); CARBON DIOXIDE,CO2 24.8 mmol/L (21.0-32.0); CHLORIDE,CL 106 mmol/L (98-107); GLUCOSE RANDOM 101 mg/dL (74-106); SODIUM,NA 140 mmol/L (136-145)
--- NOTE | 2020-06-24 17:47 | CR ---
HISTORY: Shortness of breath and chest pain, 2 weeks . COMPARISON: 09/11/2019 FINDINGS: A portable erect AP view of the chest was obtained at 17 11 hours. The lungs remain clear. No focal or diffuse infiltrates are present. The heart remains normal in size. The mediastinum is normal in appearance. The osseous structures are normal in appearance for the patient`s age. IMPRESSION: Normal portable chest single view. Dictated by Madhu Mims MD @ Jun 24 2020 5:43PM Signed by Dr. Madhu Mims @ Jun 24 2020 5:44PM
--- NOTE | 2020-06-24 18:19 | EDM.PDOC ---
ED HPI GENERAL MEDICAL PROBLEM - General Chief Complaint: General Stated Complaint: TWO WKS PP, RT SIDE KIDNEY PAIN Time Seen by Provider: 06/24/20 16:20 Source of Information: Reports: Patient History Limitations: Reports: No Limitations - History of Present Illness INITIAL COMMENTS - FREE TEXT/NARRATIVE: 29F PMHx post- x2-weeks complicated by gestational diabetes, recent COVID- 19 infection presents for R "kidney pain" and SOB/CP. Started a few days ago as upper back "kidney pain". No dysuria. Does have some increased urinary frequency. No hematuria. Today migrated towards from of chest and it hurts to take a deep breath in. +SOB associated with it. OB referred her here for workup. No fevers. Lower Back Pain Score (Numeric/FACES): 8 - Related Data Allergies Allergy/AdvReac Type Severity Reaction Status Date / Time No Known Allergies Allergy Verified 06/24/20 16:27 Home Meds: Home Meds Pnv No.95/Ferrous Fum/Folic AC [ Tablet] 1 tab PO DAILY 04/17/20 [History] Ibuprofen 400 mg PO Q6HR #28 tablet 06/24/20 [Rx] Lidocaine 1 each TP DAILY #7 adh..patch 06/24/20 [Rx] Past Medical History - Past Health History Medical/Surgical History: Denies Medical/Surgical History HEENT History: Reports: None Cardiovascular History: Reports: Other (See Below) Other Cardiovascular History: hx of tachycardia Respiratory History: Reports: None Gastrointestinal History: Reports: None Genitourinary History: Reports: Other (See Below) Other Genitourinary History: proteinuria [employer] History: Reports: Endometriosis, , Other (See Below) 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 History: uterine polyps Musculoskeletal History: Reports: None Neurological History: Reports: None Psychiatric History: Reports: None Endocrine/Metabolic History: Reports: Diabetes, Gestational, Other (See Below) Other Endocrine/Metabolic History: diet controlled Hematologic History: Reports: None Immunologic History: Reports: None Oncologic (Cancer) History: Reports: None Dermatologic History: Reports: None - Infectious Disease History Infectious Disease History: Reports: Chicken Pox - Past Surgical History HEENT Surgical History: Reports: None GI Surgical History: Reports: None Female Surgical History: Reports: LEEP Social & Family History - Family History Family Medical History: Noncontributory HEENT: Reports: None Cardiac: Reports: None Respiratory: Reports: None GI: Reports: None : Reports: None OBGYN: Reports: Endometriosis, Fibroids, Musculoskeletal: Reports: Arthritis Neurological: Reports: Alzheimers Disease, Migraines Psychiatric: Reports: None Endocrine/Metabolic: Reports: Diabetes, type II Hematologic: Reports: None Immunologic: Reports: None Dermatologic: Reports: None Oncologic: Reports: Breast, Colon, Skin - Tobacco Use Smoking Status *Q: Never Smoker - Caffeine Use Caffeine Use: Reports: None - Recreational Drug Use Recreational Drug Use: No ED ROS GENERAL - Review of Systems Review Of Systems: Comprehensive ROS is negative, except as noted in HPI. ED EXAM, GENERAL - Physical Exam Exam: See Below Exam Limited By: No Limitations General Appearance: Alert, WD/WN, No Apparent Distress Ears: Normal External Exam Nose: Normal Inspection, Normal Mucosa Throat/Mouth: Normal Inspection, Normal Voice, No Airway Compromise Head: Atraumatic, Normocephalic Neck: Normal Inspection Respiratory/Chest: No Respiratory Distress, Lungs Clear, Normal Breath Sounds, No Accessory Muscle Use Cardiovascular: Normal Peripheral Pulses, No Edema, Tachycardia Back Exam: Normal Inspection Extremities: Normal Inspection Neurological: Alert Psychiatric: Normal Affect, Normal Mood Skin Exam: Warm, Dry, Intact Course - Vital Signs Last Recorded V/S: Last Vital Signs Temp 96.8 F L 06/24/20 16:41 Pulse 90 06/24/20 21:16 Resp 20 06/24/20 21:16 BP 110/65 06/24/20 21:16 Pulse Ox 98 06/24/20 21:16 - Orders/Labs/Meds Orders: Active Orders 24 hr Category Date Time Status Saline Lock Insert [OM.PC] Stat Oth 06/24/20 16:39 Ordered Labs: Laboratory Tests 06/24/20 06/24/20 06/24/20 Range/Units 15:55 15:55 15:55 WBC 6.73 (4.0-11.0) K/uL RBC 4.34 (4.30-5.90) M/uL Hgb 12.5 (12.0-16.0) g/dL Hct 39.7 (36.0-46.0) % MCV 91.5 (80.0-98.0) fL MCH 28.8 (27.0-32.0) pg MCHC 31.5 (31.0-37.0) g/dL RDW Std Deviation 45.1 (28.0-62.0) fl RDW Coeff of Mary 14 (11.0-15.0) % Plt Count 330 (150-400) K/uL MPV 10.10 (7.40-12.00) fL Neut % (Auto) 74.1 (48.0-80.0) % Lymph % (Auto) 16.9 (16.0-40.0) % Preston % (Auto) 8.2 (0.0-15.0) % Eos % (Auto) 0.7 (0.0-7.0) % Baso % (Auto) 0.1 (0.0-1.5) % Neut # (Auto) 5.0 (1.4-5.7) K/uL Lymph # (Auto) 1.1 (0.6-2.4) K/uL Preston # (Auto) 0.6 (0.0-0.8) K/uL Eos # (Auto) 0.1 (0.0-0.7) K/uL Baso # (Auto) 0.0 (0.0-0.1) K/uL Nucleated RBC % 0.0 /100WBC Nucleated RBCs # 0 K/uL INR 1.04 APTT 26.9 (18.6-31.3) SEC D-Dimer, Quantitative 2.24 H (0.0-0.50) mg/L FEU Sodium 140 (136-145) mmol/L Potassium 4.0 (3.5-5.1) mmol/L Chloride 106 (98-107) mmol/L Carbon Dioxide 24.8 (21.0-32.0) mmol/L BUN 8 (7.0-18.0) mg/dL Creatinine 1.0 (0.6-1.0) mg/dL Est Cr Clr Drug Dosing 85.24 mL/min Estimated GFR (MDRD) > 60.0 ml/min Glucose 101 (74-106) mg/dL Calcium 8.7 (8.5-10.1) mg/dL Magnesium 2.1 (1.8-2.4) mg/dL Total Bilirubin 0.4 (0.2-1.0) mg/dL AST 19 (15-37) IU/L ALT 22 (14-63) IU/L Alkaline Phosphatase 115 (46-116) U/L Troponin I < 0.050 (0.000-0.056) ng/mL B-Natriuretic Peptide (<100) PG/ML Total Protein 7.2 (6.4-8.2) g/dL Albumin 3.0 L (3.4-5.0) g/dL Globulin 4.2 H (2.6-4.0) g/dL Albumin/Globulin Ratio 0.7 L (0.9-1.6) Urine Color Urine Appearance Urine pH (5.0-8.0) Ur Specific [place] (1.001-1.035) Urine Protein (NEGATIVE) mg/dL Urine Glucose (UA) (NEGATIVE) mg/dL Urine Ketones (NEGATIVE) mg/dL Urine Occult Blood (NEGATIVE) Urine Nitrite (NEGATIVE) Urine Bilirubin (NEGATIVE) Urine Urobilinogen (<2.0) EU/dL Ur Leukocyte Esterase (NEGATIVE) Urine RBC (0-2/HPF) Urine WBC (0-5/HPF) Ur Epithelial Cells (NONE-FEW) Urine Bacteria (NEGATIVE) SARS-CoV-2 RNA (OLIVIA) (NEGATIVE) 06/24/20 06/24/20 06/24/20 Range/Units 15:55 17:31 19:35 WBC (4.0-11.0) K/uL RBC (4.30-5.90) M/uL Hgb (12.0-16.0) g/dL Hct (36.0-46.0) % MCV (80.0-98.0) fL MCH (27.0-32.0) pg MCHC (31.0-37.0) g/dL RDW Std Deviation (28.0-62.0) fl RDW Coeff of Mary (11.0-15.0) % Plt Count (150-400) K/uL MPV (7.40-12.00) fL Neut % (Auto) (48.0-80.0) % Lymph % (Auto) (16.0-40.0) % Preston % (Auto) (0.0-15.0) % Eos % (Auto) (0.0-7.0) % Baso % (Auto) (0.0-1.5) % Neut # (Auto) (1.4-5.7) K/uL Lymph # (Auto) (0.6-2.4) K/uL Preston # (Auto) (0.0-0.8) K/uL Eos # (Auto) (0.0-0.7) K/uL Baso # (Auto) (0.0-0.1) K/uL Nucleated RBC % /100WBC Nucleated RBCs # K/uL INR APTT (18.6-31.3) SEC D-Dimer, Quantitative (0.0-0.50) mg/L FEU Sodium (136-145) mmol/L Potassium (3.5-5.1) mmol/L Chloride (98-107) mmol/L Carbon Dioxide (21.0-32.0) mmol/L BUN (7.0-18.0) mg/dL Creatinine (0.6-1.0) mg/dL Est Cr Clr Drug Dosing mL/min Estimated GFR (MDRD) ml/min Glucose (74-106) mg/dL Calcium (8.5-10.1) mg/dL Magnesium (1.8-2.4) mg/dL Total Bilirubin (0.2-1.0) mg/dL AST (15-37) IU/L ALT (14-63) IU/L Alkaline Phosphatase (46-116) U/L Troponin I (0.000-0.056) ng/mL B-Natriuretic Peptide 2 (<100) PG/ML Total Protein (6.4-8.2) g/dL Albumin (3.4-5.0) g/dL Globulin (2.6-4.0) g/dL Albumin/Globulin Ratio (0.9-1.6) Urine Color YELLOW Urine Appearance CLEAR Urine pH 6.0 (5.0-8.0) Ur Specific [place] 1.025 (1.001-1.035) Urine Protein NEGATIVE (NEGATIVE) mg/dL Urine Glucose (UA) NEGATIVE (NEGATIVE) mg/dL Urine Ketones NEGATIVE (NEGATIVE) mg/dL Urine Occult Blood LARGE H (NEGATIVE) Urine Nitrite NEGATIVE (NEGATIVE) Urine Bilirubin NEGATIVE (NEGATIVE) Urine Urobilinogen 1.0 (<2.0) EU/dL Ur Leukocyte Esterase SMALL H (NEGATIVE) Urine RBC 3-6 (0-2/HPF) Urine WBC 5-10 (0-5/HPF) Ur Epithelial Cells MODERATE (NONE-FEW) Urine Bacteria 2+ H (NEGATIVE) SARS-CoV-2 RNA (OLIVIA) POSITIVE H (NEGATIVE) Meds: Medications Discontinued Medications Generic Name Dose Route Start Last Admin Trade Name Roger PRN Reason Stop Dose Admin Iopamidol 75 ml 06/24/20 18:51 06/24/20 18:51 Isovue Multipack-370 (76%) IVPUSH 06/24/20 18:52 75 ml ONETIME STA Administration Ketorolac Tromethamine 15 mg 06/24/20 16:45 06/24/20 17:06 Toradol IVPUSH 06/24/20 16:46 Not Given ONETIME ONE Ketorolac Tromethamine 15 mg 06/24/20 20:35 06/24/20 21:13 Toradol IVPUSH 06/24/20 20:36 15 mg ONETIME STA Administration Morphine Sulfate 4 mg 06/24/20 16:45 06/24/20 17:08 Morphine IVPUSH 06/24/20 16:46 4 mg ONETIME ONE Administration Sodium Chloride 10 ml 06/24/20 16:39 06/24/20 17:08 Saline Flush FLUSH 10 ml ASDIRECTED PRN Administration Keep Vein Open Sodium Chloride 2.5 ml 06/24/20 16:39 06/24/20 17:08 Saline Flush FLUSH 2.5 ml ASDIRECTED PRN Administration Keep Vein Open - Re-Assessments/Exams Free Text/Narrative Re-Assessment/Exam: 06/24/20 18:19 D-dimer markedly elevated, will get CTA to r/o PE 06/24/20 19:19 CTA wet read positive for PE. Will sign out to night doc to f/u official read and admission. Departure - Departure Time of Disposition: 19:00 Disposition: Still A Patient 30 Condition: Good Clinical Impression: COVID-19 - Discharge Information Prescriptions: Ibuprofen 400 mg PO Q6HR #28 tablet Lidocaine 1 each TP DAILY #7 adh..patch Instructions: COVID-19, Nonspecific Chest Pain, Adult, [id number] Referrals: PCP,None [Primary Care Provider] - Forms: ED Department Discharge Sepsis Event Note (ED) - Evaluation Sepsis Screening Result: No Definite Risk - My Orders Last 24 Hours: My Active Orders 06/24/20 16:39 Saline Lock Insert [OM.PC] Stat - Assessment/Plan Last 24 Hours: My Active Orders 06/24/20 16:39 Saline Lock Insert [OM.PC] Stat
[2020-06-24] MEDS ORDERED: Iopamidol 755 MG/ML 500 ML Multipack Bottle IVPUSH STA (18:51)
--- NOTE | 2020-06-24 19:27 | CT ---
INDICATION: Shortness of breath, elevated D-dimer, 2 weeks TECHNIQUE: CT chest pulmonary PE protocol acquired with 75 cc Isovue 370 IV contrast. COMPARISON: Chest radiograph from same date FINDINGS: Cardiovascular structures: Normal vascular enhancement of the pulmonary arteries, no sign of pulmonary embolism. Heart size is normal. No sign of aneurysm in the thoracic aorta. Mediastinum and shwetha: No mass or adenopathy. Lungs: Patchy ground-glass opacities in both lungs. Pleura and pericardium: No effusions. Chest wall and axilla: No mass or adenopathy. Upper abdomen: Mild splenomegaly. Bones: No significant findings. IMPRESSION: No pulmonary embolism. Patchy ground-glass opacities in both lungs highly concerning for COVID-19 infection. Mild splenomegaly likely related to recent . Please note that all CT scans at this facility use dose modulation, iterative reconstruction, and/or weight-based dosing when appropriate to reduce radiation dose to as low as reasonably achievable. Dictated by Jamee Guerra MD @ Jun 24 2020 7:09PM Signed by Dr. Jamee Guerra @ Jun 24 2020 7:26PM
[2020-06-24] MEDS ORDERED: Ketorolac 30 MG/ML SDV IVPUSH STA (20:35)
--- NOTE | 2020-06-24 21:05 | PCM.SN.2 ---
- Free Text/Narrative Note: Patient Ms. Randolph was signed out to me by Dr. Kerr at [address] with pulmonary embolism protocol. I did have a discussion with the patient and her pain had improved slightly. The patient was saturating well on room air at 97% and her heart rate had also improved without any significant treatment. The radiological images were viewed by myself along with reading the report from the radiologist. CT with pulmonary embolism protocol revealed no evidence of acute pulmonary embolism but did reveal groundglass opacities suggesting coronavirus. The patient's coronavirus test did come back positive which is normal given the patient was COVID positive recently. I did reevaluate the patient and discussed with her that I be providing her with a prescription for ibuprofen and a lidocaine patch for pain relief. She is to perform deep breathing exercises and to return to the emergency department for any new or worsening symptoms. She was amenable discharge at this time and had no further questions.
== END 2020-06-24 21:37 | disposition still patient (30) ==
LOC: MW.ED 16:16
DX: O98.53 Other viral diseases complicating the puerperium (principal); U07.1 COVID-19
CPT/HCPCS: 36415; 71045; 71275; 80053; 81001; 83735; 83880; 84484; 85025; 85379; 85610; 85730; 87635; 93005; 96374; 96375; 99285; J1885; J2270; Q9967; 93010; U0002

== ENCOUNTER 2022-03-30 19:56 | Emergency (ER) | payer SELFPAY ==
[2022-03-31] MEDS ORDERED: Ibuprofen 600 MG Tab PO ONE (00:30)
== END 2022-03-31 00:52 | disposition home or self-care (01) ==
LOC: MW.ED 19:56
DX: J02.8 Acute pharyngitis due to other specified organisms (principal); B97.89 Other viral agents as the cause of diseases classified elsewhere; Z20.822 Contact with and (suspected) exposure to COVID-19
CPT/HCPCS: 87070; 87635; 87880; 99284; A9270; U0002

== ENCOUNTER 2023-09-15 00:13 | Inpatient (IN) | payer OTHER ==
[2023-09-15] MEDS ORDERED: Sodium Chloride 0.9% 10 ML Syringe FLUSH PRN (00:20)
[2023-09-15] MEDS ORDERED: Butorphanol 1 MG/ML SDV IVPUSH PRN (00:20)
[2023-09-15] MEDS ORDERED: Sodium Chloride 0.9% 20 ML SDV IV PRN (00:20)
[2023-09-15] MEDS ORDERED: Misoprostol 200 MCG Tab PO PRN (00:20)
[2023-09-15] MEDS ORDERED: Tranexamic Acid IN NACL,ISO-OS 1,000 MG in Premix Bag 1 BAG IV PRN ×2 (00:20)
[2023-09-15] MEDS ORDERED: Methylergonovine 0.2 MG/1 ML Amp IM PRN (00:20)
[2023-09-15] MEDS ORDERED: Ondansetron 4 MG/2 ML SDV IVPUSH PRN (00:20)
[2023-09-15] MEDS ORDERED: Carboprost Tromethamine 250 MCG/1 mL Vial IM PRN (00:20)
[2023-09-15] MEDS ORDERED: Sodium Chloride 0.9% 2.5 ML Syringe FLUSH PRN (00:20)
[2023-09-15] MEDS ORDERED: Lidocaine 1% 50 ML MDV INJECT PRN (00:20)
[2023-09-15] MEDS ORDERED: Water For Irrigation,Sterile 1,000 ML Container IRR PRN (00:20)
[2023-09-15] MEDS ORDERED: Misoprostol 25 MCG (1/4 of 100 MCG) Tab VAG PRN (00:23)
[2023-09-15] MEDS ORDERED: Misoprostol 25 MCG (1/4 of 100 MCG) Tab PO PRN ×2 (00:23)
[2023-09-15] MEDS ORDERED: Terbutaline 1 MG/ML SDV SUBCUT PRN (00:23)
[2023-09-15] MEDS ORDERED: Oxytocin/0.9 % Sodium Chloride 30 UNIT/500 ML BAG IV SCH ×2 (00:30)
[2023-09-15 01:10] LABS: HEMATOCRIT 31.9 % (37.0-47.0); HEMOGLOBIN 10.7 g/dL (12.0-16.0); MEAN CORPUSCULAR HEMOGLOBIN 28.3 pg (28.0-32.0); MEAN CORPUSCULAR HGB CONC 33.5 g/dL (32.0-36.0); MEAN CORPUSCULAR VOLUME 84.4 fL (83.0-99.0); MEAN PLATELET VOLUME 11.5 fL (9.4-12.3); PLATELET COUNT,PLT 183 K/uL (150-400); RED BLOOD CELL COUNT 3.78 M/uL (4.10-5.30); WHITE BLOOD CELL COUNT,WBC 8.86 K/uL (3.9-11.3)
[2023-09-15] MEDS: Misoprostol 25 MCG (1/4 of 100 MCG) Tab VAG PRN ×2 (01:27→05:34)
[2023-09-15] MEDS ORDERED: ePHEDrine 50 MG/ML SDV IVPUSH PRN ×2 (07:19)
[2023-09-15] MEDS ORDERED: Ropivacaine HCl/PF 400 MG in Premix Bag 1 BAG EPIDUR SCH (07:30)
[2023-09-15] MEDS: Lactated Ringers 1,000 ML IV SCH ×3 (07:47→14:38)
[2023-09-15] MEDS ORDERED: dexmedeTOMIDine HCl 200 MCG/2 ML SDV ONE (08:47)
[2023-09-15] MEDS: Phenylephrine HCl 0.5 MG/5 ML AMP IVPUSH PRN ×4 (08:55→09:54)
[2023-09-15] MEDS ORDERED: Calcium Chloride 10% 1 GM/10 ML Syringe IV ONE (12:00)
[2023-09-15] MEDS ORDERED: Calcium Chloride 1 GM in Sodium Chloride 0.9% 100 ML IV ONE (12:00)
[2023-09-15 12:17] LABS: HEMATOCRIT 31.5 % (37.0-47.0); HEMOGLOBIN 10.5 g/dL (12.0-16.0); MEAN CORPUSCULAR HEMOGLOBIN 28.3 pg (28.0-32.0); MEAN CORPUSCULAR HGB CONC 33.3 g/dL (32.0-36.0); MEAN CORPUSCULAR VOLUME 84.9 fL (83.0-99.0); MEAN PLATELET VOLUME 11.1 fL (9.4-12.3); PLATELET COUNT,PLT 182 K/uL (150-400); RED BLOOD CELL COUNT 3.71 M/uL (4.10-5.30)
[2023-09-15] MEDS ORDERED: Lanolin 100% Cream 7 GM Tube TOP PRN (18:48)
[2023-09-15] MEDS ORDERED: Witch Hazel Medicated Pads 40/Jar TOP PRN (18:48)
[2023-09-15] MEDS ORDERED: Benzocaine/Menthol 20%-0.5% Spray 78 GM Cannister TOP PRN (18:48)
[2023-09-15] MEDS ORDERED: Ibuprofen 800 MG Tab PO PRN (18:48)
[2023-09-15] MEDS ORDERED: Docusate Sodium 100 MG Cap PO PRN (18:48)
[2023-09-15] MEDS ORDERED: oxyCODONE 5 MG Tab PO PRN (18:48)
[2023-09-15] MEDS: Acetaminophen 500 MG Tab PO PRN (19:24)
[2023-09-16] MEDS: Acetaminophen 500 MG Tab PO PRN ×2 (02:40→17:48)
[2023-09-16 06:44] LABS: HEMATOCRIT 28.1 % (37.0-47.0); HEMOGLOBIN 9.3 g/dL (12.0-16.0)
== END 2023-09-16 18:59 | disposition home or self-care (01) | DRG 805 ==
LOC: MW.OB 00:13 → OBSVTOIN 17:48 → MW.OB 17:48
PROVIDERS: ADMIT Obstetrics & Gynecology Obstetrics; ATTEND Obstetrics & Gynecology Obstetrics
PROC: 10E0XZZ Delivery of Products of Conception, External Approach (ICD-10-PCS; principal; 2023-09-15)
PROC: 3E033VJ Introduction of Other Hormone into Peripheral Vein, Percutaneous Approach (ICD-10-PCS; 2023-09-15)
PROC: 10907ZC Drainage of Amniotic Fluid, Therapeutic from Products of Conception, Via Natural or Artificial Opening (ICD-10-PCS; 2023-09-15)
PROC: 3E0R3BZ Introduction of Anesthetic Agent into Spinal Canal, Percutaneous Approach (ICD-10-PCS; 2023-09-15)
PROC: 00HU33Z Insertion of Infusion Device into Spinal Canal, Percutaneous Approach (ICD-10-PCS; 2023-09-15)
DX: O36.63X0 Maternal care for excessive fetal growth, third trimester, not applicable or unspecified (principal); O45.93 Premature separation of placenta, unspecified, third trimester; Z37.0 Single live birth; D64.9 Anemia, unspecified; O99.02 Anemia complicating childbirth; O77.0 Labor and delivery complicated by meconium in amniotic fluid; O69.81X0 Labor and delivery complicated by cord around neck, without compression, not applicable or unspecified; O99.214 Obesity complicating childbirth; Z3A.38 38 weeks gestation of pregnancy; Z79.82 Long term (current) use of aspirin
CPT/HCPCS: 01967; 36415; 51702; 59025; 59409; 76815; 76815-26; 85014; 85018; 85027; 86592; 86850; 86900; 86901; A9270-GY; J2371; J2405; J2590; J2795; J3105; J3490; J7120